=== PATIENT | male | born 1950 | race Caucasian/White ===

== ENCOUNTER 2017-10-09 13:23 | Observation (INO) | payer OTHER ==
[~2017-10-09] VITALS: Ht 180.3 cm; Wt 96.8 kg
--- NOTE | ~2017-10-09 | CN ---
PATIENT NAME:MELISSA GORDILLO SR MEDICAL RECORD: [id number] : 48 LOCATION:D. D.2111 ADMIT DATE: 10/09/17 ACCOUNT: [id number] CONSULTING PHYSICIAN: NITISH HILLS MD REFERRING PHYSICIAN: SINCERE CANALES MD DATE OF CONSULTATION: 11/03/2017 IDENTIFYING DATA: The patient is 67 years old and he was admitted to the hospital on a voluntary basis. CHIEF COMPLAINT: Agitation. HISTORY OF PRESENT ILLNESS: I am consulted to see the patient because he has been agitated and disruptive with the staff members. Apparently, he has been yelling out and abusive to the nurses. He says he is only doing this because they forced him to take medicine he did not want to take. When asked about this, he says that they put pills in his throat and then poured Coke down his throat and made him drink it. I do not see how someone could make him take a pill he did not want to, but that is what he says. His mother and father and 3 other relatives, one of whom is a nurse practitioner in the room. Between all of them talking often over each other, I was able to get a reasonable amount of history and the consensus among all of them is that his behavior problems developed after he was started on the Geodon. MENTAL STATUS EXAMINATION: The patient is awake, alert, and oriented to person, place, time, and situation. His mood is flat. His affect is constricted. Thought processes are circumstantial. Memory, concentration, and abstraction abilities are mildly impaired and he denies that he would seek to harm himself or others as well as overt psychotic symptoms. ASSESSMENT: Delirium secondary to multiple medical factors. PLAN: At this time at the family's request as well as the request of the patient, I am going to discontinue his psychoactive medications. I see no acute evidence of direct dangerousness nor does he have a psychiatric history. His long-term prognosis is guarded. Followup will be with his primary care physician. TRANSINT:[id number] Voice Confirmation ID: [id number] DOCUMENT ID: [id number] NITISH HILLS MD at 1434 CC: [id number] DICTATION DATE: 11/03/17 1443 HAND BLOCKER: 11/03/17 1453 DIS IN 11/09/17 [facility] [address] [place] [address]
[~2017-10-09 13:23] MED LIST: ACTOS30 MG PO; CATAPRES0.1 MG PO; GLUCOTROL 5 MG T5 MG PO; HYDROCODON-ACE1 EAC7 PO; ISOSORBIDE MONO30 M1 PO; LOPERAMIDE HCL2 MG PO; OXYBUTYNIN CHLOR5 MG PO; PRILOSEC20 MG PO; QUESTRAN LIG1 PACKET PO; TENORMIN100 MG PO; VASOTEC20 MG PO
[2017-10-09 14:27] LABS: BASOPHILS 0.6 % (0-2); EOSINOPHILS 3.5 % (0-7); HEMATOCRIT 32.9 % (42.0-54.0); HEMOGLOBIN 10.8 g/dL (13.5-17.5); IMMATURE GRANULOCYTES 0.2 % (0-5); LYMPHOCYTES 25.1 % (15-50); MCH 29.8 pg (26.0-34.0); MCHC 32.8 g/dL (31.0-37.0); MCV 90.6 fL (80.0-100.0); MEAN PLATELET VOLUME 10.2 fL (7.4-10.4); MONOCYTES 17.8 % (2-11); NEUTROPHILS 52.8 % (40-80); PLATELET COUNT 259 10x3/uL (130-400); RBC 3.63 10x6/uL (4.20-6.10); RDW 13.4 % (11.5-14.5); WBC 12.7 10x3/uL (4.8-10.8)
[2017-10-09 14:37] LABS: ALBUMIN 2.8 g/dL (3.4-5.0); ANION GAP 13.8 mmol/L (8-16); BILIRUBIN - TOTAL 0.63 mg/dL (0.2-1.3); CALCIUM 9.2 mg/dL (8.5-10.1); CARBON DIOXIDE 25.9 mmol/L (21.0-32.0); CREATININE - SERUM 1.3 mg/dL (0.6-1.3); POTASSIUM - SERUM 3.7 mmol/L (3.5-5.1); PROTEIN - SERUM 6.6 g/dL (6.4-8.2)
[2017-10-09 15:02] LABS: APPEARANCE CLEAR (CLEAR); BILIRUBIN NEGATIVE (NEGATIVE); COLOR STRAW (YELLOW); GLUCOSE NEGATIVE (NEGATIVE); KETONE SMALL mg/dL (NEGATIVE); NITRITE NEGATIVE (NEGATIVE); PH 7.5 (5.0-6.0); PROTEIN NEGATIVE (NEGATIVE); SPECIFIC GRAVITY 1.005 (1.005-1.020); UROBILINOGEN NORMAL (NORMAL)
[2017-10-09 16:37] LABS: CKMB 1.3 U/L (0.0-3.6); CREATINE KINASE 215 UL (21-232); TROPONIN-I 0.029 ng/mL (0.000-0.060)
[2017-10-09] MEDS ORDERED: CARAFATE1 G PO (20:02)
[2017-10-09] MEDS ORDERED: FUROSEMIDE20 MG PO (20:03)
[2017-10-09] MEDS ORDERED: NEURONTIN 300300 MG PO (20:03)
[2017-10-09] MEDS ORDERED: NORVASC5 MG PO (20:03)
[2017-10-09] MEDS ORDERED: KLOR-CON 1010 MEQ PO (20:04)
[2017-10-09] MEDS ORDERED: GLIMEPIRIDE2 MG PO (20:06)
[2017-10-09] MEDS ORDERED: FLOMAX0.4 MG PO (20:08)
[2017-10-09] MEDS ORDERED: PROSCAR5 MG PO (20:08)
[2017-10-09 20:47] VITALS: BMI 29.7
[2017-10-09 21:34] VITALS: BP 192/90
[2017-10-10 01:32] VITALS: BP 138/85
[2017-10-10 07:09] VITALS: BP 180/85
[2017-10-10 08:26] VITALS: BP 142/90
[2017-10-10 12:34] VITALS: BP 183/90
[2017-10-10 13:19] VITALS: BMI 29.7
[2017-10-10 14:18] LABS: % SATURATION 9 % (15-55); IRON 21 ug/dl (35-150); TOTAL IRON BIND CAPACITY 224 ug/dl (260-445); UNSAT IRON BIND CAPACITY 203 ug/dl (150-375)
[2017-10-10 15:45] VITALS: BP 162/83
[2017-10-10 21:09] VITALS: BP 140/73
[2017-10-11 00:49] VITALS: BP 158/82
[2017-10-11 05:12] VITALS: BP 148/64
[2017-10-11 06:35] LABS: BASOPHILS 0.3 % (0-2); EOSINOPHILS 13.8 % (0-7); HEMATOCRIT 30.2 % (42.0-54.0); HEMOGLOBIN 9.9 g/dL (13.5-17.5); IMMATURE GRANULOCYTES 0.3 % (0-5); LYMPHOCYTES 25.5 % (15-50); MCH 29.6 pg (26.0-34.0); MCHC 32.8 g/dL (31.0-37.0); MCV 90.1 fL (80.0-100.0); MEAN PLATELET VOLUME 10.4 fL (7.4-10.4); MONOCYTES 18.7 % (2-11); NEUTROPHILS 41.4 % (40-80); PLATELET COUNT 237 10x3/uL (130-400); RBC 3.35 10x6/uL (4.20-6.10); RDW 13.5 % (11.5-14.5); WBC 10.5 10x3/uL (4.8-10.8)
[2017-10-11 06:55] LABS: ANION GAP 10.3 mmol/L (8-16); CALCIUM 8.7 mg/dL (8.5-10.1); CARBON DIOXIDE 27.4 mmol/L (21.0-32.0); CREATININE - SERUM 1.5 mg/dL (0.6-1.3); POTASSIUM - SERUM 3.7 mmol/L (3.5-5.1)
[2017-10-11 08:14] VITALS: BP 149/68
[2017-10-11 08:19] LABS: FOLATE (FOLIC ACID) - SERUM 13.2 ng/mL (>3.0)
[2017-10-11 11:53] VITALS: BP 114/80
[2017-10-11 17:06] VITALS: BP 137/87
[2017-10-11 21:09] VITALS: BP 145/72
[2017-10-12 05:54] VITALS: BP 142/75
[2017-10-12 06:49] LABS: BASOPHILS 0.2 % (0-2); EOSINOPHILS 12.1 % (0-7); HEMOGLOBIN 9.9 g/dL (13.5-17.5); IMMATURE GRANULOCYTES 0.3 % (0-5); LYMPHOCYTES 21.5 % (15-50); MCH 29.1 pg (26.0-34.0); MCHC 31.9 g/dL (31.0-37.0); MCV 91.2 fL (80.0-100.0); MEAN PLATELET VOLUME 10.9 fL (7.4-10.4); MONOCYTES 16.9 % (2-11); PLATELET COUNT 247 10x3/uL (130-400); RDW 13.8 % (11.5-14.5); WBC 12.6 10x3/uL (4.8-10.8)
[2017-10-12 07:05] LABS: ANION GAP 12.3 mmol/L (8-16); CALCIUM 8.8 mg/dL (8.5-10.1); CARBON DIOXIDE 25.7 mmol/L (21.0-32.0); CREATININE - SERUM 1.5 mg/dL (0.6-1.3)
[2017-10-12 08:52] VITALS: BP 158/65
[2017-10-12 12:47] VITALS: BP 129/77
[2017-10-12 18:08] VITALS: BP 133/64
[2017-10-12 20:00] VITALS: BP 157/84
[2017-10-13 04:00] VITALS: BP 155/82
[2017-10-13 04:28] LABS: BASOPHILS 0.2 % (0-2); EOSINOPHILS 13.1 % (0-7); HEMATOCRIT 33.9 % (42.0-54.0); IMMATURE GRANULOCYTES 0.4 % (0-5); LYMPHOCYTES 29.5 % (15-50); MCH 29.6 pg (26.0-34.0); MCHC 32.4 g/dL (31.0-37.0); MCV 91.1 fL (80.0-100.0); MEAN PLATELET VOLUME 10.8 fL (7.4-10.4); MONOCYTES 15.7 % (2-11); NEUTROPHILS 41.1 % (40-80); PLATELET COUNT 263 10x3/uL (130-400); RBC 3.72 10x6/uL (4.20-6.10); RDW 13.7 % (11.5-14.5); WBC 10.6 10x3/uL (4.8-10.8)
[2017-10-13 04:43] LABS: ANION GAP 11.1 mmol/L (8-16); CARBON DIOXIDE 27.7 mmol/L (21.0-32.0); CREATININE - SERUM 1.5 mg/dL (0.6-1.3); POTASSIUM - SERUM 3.8 mmol/L (3.5-5.1)
[2017-10-13 08:39] VITALS: BP 172/86
[2017-10-13 11:57] VITALS: BP 156/82
[2017-10-13 15:54] VITALS: BP 138/68
[2017-10-13 20:00] VITALS: BP 127/63
[2017-10-14] VITALS: BP 130/60
[2017-10-14 04:00] VITALS: BP 134/80
[2017-10-14 05:38] LABS: BASOPHILS 0.3 % (0-2); EOSINOPHILS 10.2 % (0-7); HEMATOCRIT 29.9 % (42.0-54.0); HEMOGLOBIN 9.6 g/dL (13.5-17.5); IMMATURE GRANULOCYTES 0.2 % (0-5); LYMPHOCYTES 22.1 % (15-50); MCH 28.9 pg (26.0-34.0); MCHC 32.1 g/dL (31.0-37.0); MCV 90.1 fL (80.0-100.0); MEAN PLATELET VOLUME 10.9 fL (7.4-10.4); MONOCYTES 14.5 % (2-11); NEUTROPHILS 52.7 % (40-80); PLATELET COUNT 267 10x3/uL (130-400); RBC 3.32 10x6/uL (4.20-6.10); RDW 13.8 % (11.5-14.5)
[2017-10-14 05:51] LABS: ANION GAP 11.8 mmol/L (8-16); CALCIUM 8.8 mg/dL (8.5-10.1); CARBON DIOXIDE 25.4 mmol/L (21.0-32.0); CREATININE - SERUM 1.7 mg/dL (0.6-1.3); POTASSIUM - SERUM 4.2 mmol/L (3.5-5.1)
[2017-10-14 08:16] VITALS: BP 103/33
[2017-10-14 11:59] VITALS: BP 129/74
[2017-10-14 16:04] VITALS: BP 163/71
[2017-10-14 20:44] VITALS: BP 136/64
[2017-10-15 01:11] VITALS: BP 152/71
[2017-10-15 05:44] LABS: ANION GAP 10.4 mmol/L (8-16); CALCIUM 8.8 mg/dL (8.5-10.1); CARBON DIOXIDE 24.4 mmol/L (21.0-32.0); CREATININE - SERUM 1.6 mg/dL (0.6-1.3); POTASSIUM - SERUM 3.8 mmol/L (3.5-5.1)
[2017-10-15 05:46] VITALS: BP 155/77
[2017-10-15 05:47] LABS: BASOPHILS 0.3 % (0-2); EOSINOPHILS 9.6 % (0-7); HEMATOCRIT 32.5 % (42.0-54.0); HEMOGLOBIN 10.3 g/dL (13.5-17.5); IMMATURE GRANULOCYTES 0.3 % (0-5); MCH 28.9 pg (26.0-34.0); MCHC 31.7 g/dL (31.0-37.0); MEAN PLATELET VOLUME 11.4 fL (7.4-10.4); MONOCYTES 14.6 % (2-11); NEUTROPHILS 53.2 % (40-80); PLATELET COUNT 294 10x3/uL (130-400); RBC 3.57 10x6/uL (4.20-6.10)
[2017-10-15 08:26] VITALS: BP 166/80
[2017-10-15 11:51] VITALS: BP 132/85
[2017-10-15 16:33] VITALS: BP 114/62
[2017-10-15 20:46] VITALS: BP 113/54
[2017-10-16 01:06] VITALS: BP 128/62
[2017-10-16 05:26] LABS: BASOPHILS 0.4 % (0-2); EOSINOPHILS 9.3 % (0-7); HEMATOCRIT 32.4 % (42.0-54.0); HEMOGLOBIN 10.5 g/dL (13.5-17.5); IMMATURE GRANULOCYTES 0.2 % (0-5); LYMPHOCYTES 27.8 % (15-50); MCH 29.4 pg (26.0-34.0); MCHC 32.4 g/dL (31.0-37.0); MCV 90.8 fL (80.0-100.0); MEAN PLATELET VOLUME 11.2 fL (7.4-10.4); NEUTROPHILS 45.3 % (40-80); PLATELET COUNT 315 10x3/uL (130-400); RBC 3.57 10x6/uL (4.20-6.10); RDW 13.9 % (11.5-14.5); WBC 9.9 10x3/uL (4.8-10.8)
[2017-10-16 05:47] LABS: ANION GAP 10.7 mmol/L (8-16); CALCIUM 9.1 mg/dL (8.5-10.1); CARBON DIOXIDE 24.6 mmol/L (21.0-32.0); CREATININE - SERUM 1.7 mg/dL (0.6-1.3); POTASSIUM - SERUM 4.3 mmol/L (3.5-5.1)
[2017-10-16 06:10] VITALS: BP 139/75
[2017-10-16 09:25] VITALS: BP 159/81
[2017-10-16 12:37] VITALS: BP 146/74
[2017-10-16 17:32] VITALS: BP 102/52
[2017-10-16 20:00] VITALS: BP 117/60
[2017-10-17] VITALS: BP 112/56
[2017-10-17 04:00] VITALS: BP 118/54
[2017-10-17 06:00] LABS: BASOPHILS 0.6 % (0-2); EOSINOPHILS 8.6 % (0-7); HEMATOCRIT 32.9 % (42.0-54.0); HEMOGLOBIN 10.6 g/dL (13.5-17.5); IMMATURE GRANULOCYTES 0.3 % (0-5); LYMPHOCYTES 30.1 % (15-50); MCH 29.4 pg (26.0-34.0); MCHC 32.2 g/dL (31.0-37.0); MCV 91.1 fL (80.0-100.0); MEAN PLATELET VOLUME 10.9 fL (7.4-10.4); MONOCYTES 14.8 % (2-11); NEUTROPHILS 45.6 % (40-80); RBC 3.61 10x6/uL (4.20-6.10); RDW 14.1 % (11.5-14.5); WBC 10.8 10x3/uL (4.8-10.8)
[2017-10-17 06:01] LABS: PLATELET COUNT 384 10x3/uL (130-400)
[2017-10-17 06:03] LABS: ANION GAP 10.2 mmol/L (8-16); CALCIUM 9.4 mg/dL (8.5-10.1); CARBON DIOXIDE 27.7 mmol/L (21.0-32.0); CREATININE - SERUM 1.8 mg/dL (0.6-1.3); POTASSIUM - SERUM 3.9 mmol/L (3.5-5.1)
[2017-10-17 08:11] VITALS: BP 140/77
[2017-10-17 12:24] VITALS: BP 111/62
[2017-10-17 15:31] VITALS: BP 113/50
[2017-10-17 20:00] VITALS: BP 128/63
[2017-10-18 06:10] LABS: BASOPHILS 0.5 % (0-2); HEMATOCRIT 32.6 % (42.0-54.0); HEMOGLOBIN 10.3 g/dL (13.5-17.5); IMMATURE GRANULOCYTES 0.3 % (0-5); MCH 29.2 pg (26.0-34.0); MCHC 31.6 g/dL (31.0-37.0); MCV 92.4 fL (80.0-100.0); MEAN PLATELET VOLUME 11.3 fL (7.4-10.4); MONOCYTES 18.5 % (2-11); NEUTROPHILS 41.7 % (40-80); PLATELET COUNT 400 10x3/uL (130-400); RBC 3.53 10x6/uL (4.20-6.10); RDW 14.3 % (11.5-14.5); WBC 10.4 10x3/uL (4.8-10.8)
[2017-10-18 06:27] LABS: ANION GAP 11.4 mmol/L (8-16); CALCIUM 9.2 mg/dL (8.5-10.1); CARBON DIOXIDE 28.6 mmol/L (21.0-32.0); CREATININE - SERUM 1.8 mg/dL (0.6-1.3)
[2017-10-18 08:24] VITALS: BP 142/77
[2017-10-18 12:35] VITALS: BP 105/65
[2017-10-18 15:47] VITALS: BP 111/60
[2017-10-18 20:00] VITALS: BP 138/72
[2017-10-19 04:00] VITALS: BP 162/66
[2017-10-19 06:19] LABS: BASOPHILS 0.6 % (0-2); HEMATOCRIT 31.7 % (42.0-54.0); IMMATURE GRANULOCYTES 0.3 % (0-5); LYMPHOCYTES 27.7 % (15-50); MCH 28.8 pg (26.0-34.0); MCHC 31.5 g/dL (31.0-37.0); MCV 91.4 fL (80.0-100.0); MEAN PLATELET VOLUME 10.9 fL (7.4-10.4); MONOCYTES 18.6 % (2-11); NEUTROPHILS 43.8 % (40-80); PLATELET COUNT 431 10x3/uL (130-400); RBC 3.47 10x6/uL (4.20-6.10); RDW 14.2 % (11.5-14.5)
[2017-10-19 06:43] LABS: ANION GAP 11.2 mmol/L (8-16); CALCIUM 9.2 mg/dL (8.5-10.1); CREATININE - SERUM 1.7 mg/dL (0.6-1.3); POTASSIUM - SERUM 4.2 mmol/L (3.5-5.1)
[2017-10-19 08:40] VITALS: BP 139/78
[2017-10-19 12:48] VITALS: BP 124/75
[2017-10-19 16:15] VITALS: BP 109/56
[2017-10-19 17:12] LABS: AEROBE ID Final report (())
[2017-10-19 20:04] VITALS: BP 141/75
[2017-10-20 00:37] VITALS: BP 98/53
[2017-10-20 06:07] LABS: BASOPHILS 0.6 % (0-2); EOSINOPHILS 6.9 % (0-7); HEMATOCRIT 32.8 % (42.0-54.0); HEMOGLOBIN 10.5 g/dL (13.5-17.5); IMMATURE GRANULOCYTES 0.2 % (0-5); LYMPHOCYTES 27.4 % (15-50); MCH 29.3 pg (26.0-34.0); MCV 91.6 fL (80.0-100.0); MEAN PLATELET VOLUME 10.8 fL (7.4-10.4); MONOCYTES 18.2 % (2-11); NEUTROPHILS 46.7 % (40-80); PLATELET COUNT 477 10x3/uL (130-400); RBC 3.58 10x6/uL (4.20-6.10); RDW 14.2 % (11.5-14.5); WBC 9.9 10x3/uL (4.8-10.8)
[2017-10-20 06:21] VITALS: BP 124/64
[2017-10-20 06:33] LABS: ANION GAP 11.8 mmol/L (8-16); CALCIUM 9.1 mg/dL (8.5-10.1); CARBON DIOXIDE 27.4 mmol/L (21.0-32.0); CREATININE - SERUM 1.9 mg/dL (0.6-1.3); POTASSIUM - SERUM 4.2 mmol/L (3.5-5.1)
[2017-10-20 08:50] VITALS: BP 144/74
[2017-10-20 12:03] VITALS: BP 148/67
[2017-10-20 12:28] VITALS: Ht 180.3 cm; Wt 96.8 kg
[2017-10-20 15:28] VITALS: BP 125/62
[2017-10-20 20:38] VITALS: BP 138/65
[2017-10-21 00:05] VITALS: BP 90/63
[2017-10-21 04:39] VITALS: BP 134/69
[2017-10-21 08:02] VITALS: BP 133/70
[2017-10-21 11:11] VITALS: BP 98/57
[2017-10-21 11:26] LABS: BASOPHILS 0.3 % (0-2); EOSINOPHILS 7.5 % (0-7); HEMATOCRIT 33.3 % (42.0-54.0); HEMOGLOBIN 10.8 g/dL (13.5-17.5); IMMATURE GRANULOCYTES 0.2 % (0-5); LYMPHOCYTES 23.7 % (15-50); MCH 29.6 pg (26.0-34.0); MCHC 32.4 g/dL (31.0-37.0); MCV 91.2 fL (80.0-100.0); MEAN PLATELET VOLUME 11.3 fL (7.4-10.4); MONOCYTES 13.2 % (2-11); NEUTROPHILS 55.1 % (40-80); PLATELET COUNT 495 10x3/uL (130-400); RBC 3.65 10x6/uL (4.20-6.10); RDW 14.1 % (11.5-14.5); WBC 9.2 10x3/uL (4.8-10.8)
[2017-10-21 11:35] LABS: ANION GAP 12.9 mmol/L (8-16); CALCIUM 9.2 mg/dL (8.5-10.1); CARBON DIOXIDE 24.3 mmol/L (21.0-32.0); CREATININE - SERUM 1.8 mg/dL (0.6-1.3); POTASSIUM - SERUM 4.2 mmol/L (3.5-5.1)
[2017-10-21 15:19] VITALS: BP 120/60
[2017-10-21 20:33] VITALS: BP 119/56
[2017-10-22 01:35] VITALS: BP 96/45
[2017-10-22 05:28] LABS: BASOPHILS 0.4 % (0-2); EOSINOPHILS 6.1 % (0-7); HEMATOCRIT 30.2 % (42.0-54.0); HEMOGLOBIN 9.5 g/dL (13.5-17.5); IMMATURE GRANULOCYTES 0.3 % (0-5); LYMPHOCYTES 25.8 % (15-50); MCH 28.8 pg (26.0-34.0); MCHC 31.5 g/dL (31.0-37.0); MCV 91.5 fL (80.0-100.0); MONOCYTES 15.6 % (2-11); NEUTROPHILS 51.8 % (40-80); PLATELET COUNT 489 10x3/uL (130-400); RDW 14.3 % (11.5-14.5); WBC 9.7 10x3/uL (4.8-10.8)
[2017-10-22 05:50] VITALS: BP 100/60
[2017-10-22 05:51] LABS: ANION GAP 10.9 mmol/L (8-16); CALCIUM 8.8 mg/dL (8.5-10.1); CARBON DIOXIDE 24.3 mmol/L (21.0-32.0); CREATININE - SERUM 1.9 mg/dL (0.6-1.3); POTASSIUM - SERUM 4.2 mmol/L (3.5-5.1)
[2017-10-22 08:25] VITALS: BP 126/58
[2017-10-22 11:52] VITALS: BP 116/67
[2017-10-22 15:53] VITALS: BP 107/55
[2017-10-22 20:34] VITALS: BP 115/61
[2017-10-23 01:31] VITALS: BP 99/52
[2017-10-23 04:57] LABS: BASOPHILS 0.6 % (0-2); EOSINOPHILS 5.9 % (0-7); HEMOGLOBIN 10.1 g/dL (13.5-17.5); IMMATURE GRANULOCYTES 0.4 % (0-5); LYMPHOCYTES 27.7 % (15-50); MCH 29.2 pg (26.0-34.0); MCHC 31.6 g/dL (31.0-37.0); MCV 92.5 fL (80.0-100.0); MONOCYTES 17.6 % (2-11); NEUTROPHILS 47.8 % (40-80); PLATELET COUNT 535 10x3/uL (130-400); RBC 3.46 10x6/uL (4.20-6.10); RDW 14.5 % (11.5-14.5); WBC 9.5 10x3/uL (4.8-10.8)
[2017-10-23 05:26] LABS: ANION GAP 16.5 mmol/L (8-16); CALCIUM 9.2 mg/dL (8.5-10.1); CARBON DIOXIDE 22.8 mmol/L (21.0-32.0); CREATININE - SERUM 2.1 mg/dL (0.6-1.3); POTASSIUM - SERUM 4.3 mmol/L (3.5-5.1)
[2017-10-23 05:43] VITALS: BP 115/63
[2017-10-23 10:02] VITALS: BP 132/72
[2017-10-23 13:18] VITALS: BP 136/75
[2017-10-23 16:17] VITALS: BP 105/52
[2017-10-23 20:00] VITALS: BP 111/55
[2017-10-24 04:00] VITALS: BP 128/67
[2017-10-24 07:16] LABS: BASOPHILS 0.5 % (0-2); EOSINOPHILS 5.4 % (0-7); HEMATOCRIT 34.7 % (42.0-54.0); HEMOGLOBIN 10.7 g/dL (13.5-17.5); IMMATURE GRANULOCYTES 0.3 % (0-5); LYMPHOCYTES 25.7 % (15-50); MCH 28.9 pg (26.0-34.0); MCHC 30.8 g/dL (31.0-37.0); MCV 93.8 fL (80.0-100.0); MEAN PLATELET VOLUME 11.4 fL (7.4-10.4); MONOCYTES 15.2 % (2-11); NEUTROPHILS 52.9 % (40-80); PLATELET COUNT 496 10x3/uL (130-400); RDW 14.5 % (11.5-14.5); WBC 11.4 10x3/uL (4.8-10.8)
[2017-10-24 07:20] LABS: ANION GAP 12.9 mmol/L (8-16); CALCIUM 9.3 mg/dL (8.5-10.1); CARBON DIOXIDE 23.5 mmol/L (21.0-32.0); CREATININE - SERUM 1.9 mg/dL (0.6-1.3); POTASSIUM - SERUM 4.4 mmol/L (3.5-5.1)
[2017-10-24 08:53] VITALS: BP 134/71
[2017-10-24 11:45] VITALS: BP 124/64
[2017-10-24 20:00] VITALS: BP 142/74
[2017-10-25] VITALS: BP 138/72
[2017-10-25 04:00] VITALS: BP 146/80
[2017-10-25 05:29] LABS: BASOPHILS 0.2 % (0-2); EOSINOPHILS 4.6 % (0-7); HEMOGLOBIN 9.7 g/dL (13.5-17.5); IMMATURE GRANULOCYTES 0.3 % (0-5); MCH 28.9 pg (26.0-34.0); MCHC 31.3 g/dL (31.0-37.0); MCV 92.3 fL (80.0-100.0); MEAN PLATELET VOLUME 10.8 fL (7.4-10.4); NEUTROPHILS 61.9 % (40-80); PLATELET COUNT 532 10x3/uL (130-400); RBC 3.36 10x6/uL (4.20-6.10); RDW 14.5 % (11.5-14.5); WBC 13.7 10x3/uL (4.8-10.8)
[2017-10-25 05:43] LABS: ANION GAP 12.4 mmol/L (8-16); CALCIUM 8.7 mg/dL (8.5-10.1); CARBON DIOXIDE 23.8 mmol/L (21.0-32.0); CREATININE - SERUM 1.9 mg/dL (0.6-1.3); POTASSIUM - SERUM 4.2 mmol/L (3.5-5.1)
[2017-10-25 07:59] VITALS: BP 126/66
[2017-10-25 11:48] VITALS: BP 103/59
[2017-10-25 15:46] VITALS: BP 117/55
[2017-10-25 20:28] VITALS: BP 116/57
[2017-10-26 01:30] VITALS: BP 116/58
[2017-10-26 04:00] VITALS: BP 111/62
[2017-10-26 04:50] LABS: BASOPHILS 0.5 % (0-2); EOSINOPHILS 4.9 % (0-7); HEMATOCRIT 30.3 % (42.0-54.0); HEMOGLOBIN 9.5 g/dL (13.5-17.5); IMMATURE GRANULOCYTES 0.6 % (0-5); LYMPHOCYTES 26.7 % (15-50); MCHC 31.4 g/dL (31.0-37.0); MCV 92.4 fL (80.0-100.0); MEAN PLATELET VOLUME 10.5 fL (7.4-10.4); MONOCYTES 17.3 % (2-11); PLATELET COUNT 520 10x3/uL (130-400); RBC 3.28 10x6/uL (4.20-6.10); RDW 14.5 % (11.5-14.5); WBC 11.4 10x3/uL (4.8-10.8)
[2017-10-26 05:14] LABS: ANION GAP 11.5 mmol/L (8-16); CALCIUM 8.9 mg/dL (8.5-10.1); CARBON DIOXIDE 23.9 mmol/L (21.0-32.0); POTASSIUM - SERUM 4.4 mmol/L (3.5-5.1)
[2017-10-26 07:44] VITALS: BP 124/70
[2017-10-26 11:25] VITALS: BP 125/76
[2017-10-26 15:24] VITALS: BP 145/72
[2017-10-26 20:00] VITALS: BP 148/76
[2017-10-27 00:54] VITALS: BP 136/62
[2017-10-27 04:00] VITALS: BP 128/74
[2017-10-27 08:59] VITALS: BP 147/69
[2017-10-27 12:13] VITALS: BP 125/61
[2017-10-27 15:43] VITALS: BP 164/59
[2017-10-27 21:08] VITALS: BP 120/59
[2017-10-28 01:39] VITALS: BP 115/51
[2017-10-28 05:49] LABS: BASOPHILS 0.6 % (0-2); EOSINOPHILS 5.9 % (0-7); HEMATOCRIT 30.1 % (42.0-54.0); HEMOGLOBIN 9.4 g/dL (13.5-17.5); IMMATURE GRANULOCYTES 0.4 % (0-5); LYMPHOCYTES 33.1 % (15-50); MCH 28.7 pg (26.0-34.0); MCHC 31.2 g/dL (31.0-37.0); MEAN PLATELET VOLUME 10.6 fL (7.4-10.4); MONOCYTES 14.9 % (2-11); NEUTROPHILS 45.1 % (40-80); PLATELET COUNT 505 10x3/uL (130-400); RBC 3.27 10x6/uL (4.20-6.10); RDW 14.4 % (11.5-14.5); WBC 10.7 10x3/uL (4.8-10.8)
[2017-10-28 06:09] LABS: ANION GAP 11.7 mmol/L (8-16); CALCIUM 9.1 mg/dL (8.5-10.1); CARBON DIOXIDE 24.6 mmol/L (21.0-32.0); CREATININE - SERUM 1.8 mg/dL (0.6-1.3); POTASSIUM - SERUM 4.3 mmol/L (3.5-5.1)
[2017-10-28 06:14] VITALS: BP 127/67
[2017-10-28 08:51] VITALS: BP 147/71
[2017-10-28 12:04] VITALS: BP 133/68
[2017-10-28 16:22] VITALS: BP 150/72
[2017-10-28 22:02] VITALS: BP 168/75
[2017-10-29 01:02] VITALS: BP 140/75
[2017-10-29 05:39] VITALS: BP 154/78
[2017-10-29 05:56] LABS: BASOPHILS 0.6 % (0-2); EOSINOPHILS 6.4 % (0-7); HEMATOCRIT 34.1 % (42.0-54.0); HEMOGLOBIN 10.8 g/dL (13.5-17.5); IMMATURE GRANULOCYTES 0.3 % (0-5); LYMPHOCYTES 28.6 % (15-50); MCH 29.1 pg (26.0-34.0); MCHC 31.7 g/dL (31.0-37.0); MCV 91.9 fL (80.0-100.0); MEAN PLATELET VOLUME 10.1 fL (7.4-10.4); MONOCYTES 15.9 % (2-11); NEUTROPHILS 48.2 % (40-80); PLATELET COUNT 474 10x3/uL (130-400); RBC 3.71 10x6/uL (4.20-6.10); RDW 14.5 % (11.5-14.5); WBC 10.9 10x3/uL (4.8-10.8)
[2017-10-29 06:16] LABS: ANION GAP 12.2 mmol/L (8-16); CALCIUM 9.3 mg/dL (8.5-10.1); CREATININE - SERUM 1.6 mg/dL (0.6-1.3); POTASSIUM - SERUM 4.2 mmol/L (3.5-5.1)
[2017-10-29 08:13] VITALS: BP 175/88
[2017-10-29 12:46] VITALS: BP 163/84
[2017-10-29 16:12] VITALS: BP 131/69
[2017-10-29 21:25] VITALS: BP 140/71
[2017-10-30 01:43] VITALS: BP 157/81
[2017-10-30 05:38] VITALS: BP 139/75
[2017-10-30 08:45] VITALS: BP 147/87
[2017-10-30 10:11] LABS: BASOPHILS 0.2 % (0-2); EOSINOPHILS 3.6 % (0-7); HEMOGLOBIN 10.7 g/dL (13.5-17.5); IMMATURE GRANULOCYTES 0.2 % (0-5); LYMPHOCYTES 16.9 % (15-50); MCH 29.3 pg (26.0-34.0); MCHC 32.4 g/dL (31.0-37.0); MCV 90.4 fL (80.0-100.0); MONOCYTES 15.3 % (2-11); NEUTROPHILS 63.8 % (40-80); PLATELET COUNT 525 10x3/uL (130-400); RBC 3.65 10x6/uL (4.20-6.10); RDW 14.2 % (11.5-14.5); WBC 12.5 10x3/uL (4.8-10.8)
[2017-10-30 10:14] LABS: ANION GAP 11.2 mmol/L (8-16); CALCIUM 9.4 mg/dL (8.5-10.1); CARBON DIOXIDE 29.7 mmol/L (21.0-32.0); CREATININE - SERUM 1.5 mg/dL (0.6-1.3); POTASSIUM - SERUM 3.9 mmol/L (3.5-5.1)
[2017-10-30 16:00] VITALS: BP 176/79
[2017-10-30 20:30] VITALS: BP 164/81
[2017-10-31 06:12] LABS: BASOPHILS 0.3 % (0-2); EOSINOPHILS 3.4 % (0-7); HEMATOCRIT 33.8 % (42.0-54.0); HEMOGLOBIN 10.9 g/dL (13.5-17.5); IMMATURE GRANULOCYTES 0.1 % (0-5); LYMPHOCYTES 19.4 % (15-50); MCH 28.9 pg (26.0-34.0); MCHC 32.2 g/dL (31.0-37.0); MCV 89.7 fL (80.0-100.0); MEAN PLATELET VOLUME 10.3 fL (7.4-10.4); MONOCYTES 16.7 % (2-11); NEUTROPHILS 60.1 % (40-80); PLATELET COUNT 514 10x3/uL (130-400); RBC 3.77 10x6/uL (4.20-6.10); WBC 13.6 10x3/uL (4.8-10.8)
[2017-10-31 06:57] LABS: CALCIUM 9.4 mg/dL (8.5-10.1); CARBON DIOXIDE 28.7 mmol/L (21.0-32.0); CREATININE - SERUM 1.5 mg/dL (0.6-1.3); POTASSIUM - SERUM 3.7 mmol/L (3.5-5.1)
[2017-10-31 07:59] VITALS: BP 162/87
[2017-10-31 11:17] VITALS: BP 151/72
[2017-10-31 15:32] VITALS: BP 132/60
[2017-10-31 20:00] VITALS: BP 128/68
[2017-11-01 04:00] VITALS: BP 180/69
[2017-11-01 04:24] LABS: BASOPHILS 0.2 % (0-2); EOSINOPHILS 3.3 % (0-7); HEMATOCRIT 33.8 % (42.0-54.0); HEMOGLOBIN 10.8 g/dL (13.5-17.5); IMMATURE GRANULOCYTES 0.4 % (0-5); LYMPHOCYTES 13.9 % (15-50); MCV 90.9 fL (80.0-100.0); MEAN PLATELET VOLUME 10.4 fL (7.4-10.4); MONOCYTES 16.9 % (2-11); NEUTROPHILS 65.3 % (40-80); PLATELET COUNT 468 10x3/uL (130-400); RBC 3.72 10x6/uL (4.20-6.10); RDW 14.4 % (11.5-14.5); WBC 16.4 10x3/uL (4.8-10.8)
[2017-11-01 04:43] LABS: ANION GAP 14.2 mmol/L (8-16); CALCIUM 9.2 mg/dL (8.5-10.1); CARBON DIOXIDE 26.7 mmol/L (21.0-32.0); CREATININE - SERUM 1.7 mg/dL (0.6-1.3); POTASSIUM - SERUM 3.9 mmol/L (3.5-5.1)
[2017-11-01 08:08] VITALS: BP 157/86
[2017-11-01 11:31] VITALS: BP 176/78
[2017-11-01 15:18] VITALS: BP 178/79
[2017-11-01 21:05] VITALS: BP 175/80
[2017-11-02 07:51] VITALS: BP 202/92
[2017-11-02 11:23] LABS: CALCIUM 9.5 mg/dL (8.5-10.1); CARBON DIOXIDE 27.9 mmol/L (21.0-32.0); CREATININE - SERUM 1.3 mg/dL (0.6-1.3); POTASSIUM - SERUM 3.9 mmol/L (3.5-5.1)
[2017-11-02 11:26] VITALS: BP 159/84
[2017-11-02 20:10] VITALS: BP 185/75
[2017-11-02 23:38] VITALS: BP 167/79
[2017-11-03 04:56] VITALS: BP 197/91
[2017-11-03 08:40] VITALS: BP 180/87
[2017-11-03 12:11] VITALS: BP 175/93
[2017-11-03 12:35] LABS: BASOPHILS 0.3 % (0-2); EOSINOPHILS 5.3 % (0-7); HEMOGLOBIN 11.5 g/dL (13.5-17.5); IMMATURE GRANULOCYTES 0.3 % (0-5); LYMPHOCYTES 16.9 % (15-50); MCH 29.5 pg (26.0-34.0); MCHC 32.9 g/dL (31.0-37.0); MCV 89.7 fL (80.0-100.0); MEAN PLATELET VOLUME 10.2 fL (7.4-10.4); MONOCYTES 14.2 % (2-11); PLATELET COUNT 421 10x3/uL (130-400); WBC 11.7 10x3/uL (4.8-10.8)
[2017-11-03 12:51] LABS: ANION GAP 13.2 mmol/L (8-16); BILIRUBIN - TOTAL 0.3 mg/dL (0.2-1.3); CALCIUM 9.9 mg/dL (8.5-10.1); CARBON DIOXIDE 26.8 mmol/L (21.0-32.0); CREATININE - SERUM 1.4 mg/dL (0.6-1.3); PROTEIN - SERUM 7.3 g/dL (6.4-8.2)
[2017-11-03 17:27] VITALS: BP 139/93
[2017-11-03 20:38] VITALS: BP 112/59
[2017-11-04 00:36] VITALS: BP 145/79
[2017-11-04 05:01] LABS: BASOPHILS 0.2 % (0-2); EOSINOPHILS 6.1 % (0-7); HEMATOCRIT 33.2 % (42.0-54.0); HEMOGLOBIN 10.7 g/dL (13.5-17.5); IMMATURE GRANULOCYTES 0.2 % (0-5); LYMPHOCYTES 31.8 % (15-50); MCH 28.8 pg (26.0-34.0); MCHC 32.2 g/dL (31.0-37.0); MCV 89.5 fL (80.0-100.0); MEAN PLATELET VOLUME 10.4 fL (7.4-10.4); MONOCYTES 17.9 % (2-11); NEUTROPHILS 43.8 % (40-80); PLATELET COUNT 401 10x3/uL (130-400); RBC 3.71 10x6/uL (4.20-6.10); RDW 14.1 % (11.5-14.5); WBC 9.5 10x3/uL (4.8-10.8)
[2017-11-04 05:21] LABS: ANION GAP 11.9 mmol/L (8-16); CALCIUM 9.7 mg/dL (8.5-10.1); CARBON DIOXIDE 25.9 mmol/L (21.0-32.0); CREATININE - SERUM 1.6 mg/dL (0.6-1.3); POTASSIUM - SERUM 3.8 mmol/L (3.5-5.1)
[2017-11-04 05:31] VITALS: BP 157/77
[2017-11-04 07:00] VITALS: BP 169/69
[2017-11-04 12:31] VITALS: BP 113/73
[2017-11-04 20:07] VITALS: BP 138/75
[2017-11-05 05:19] VITALS: BP 149/80
[2017-11-05 05:56] LABS: BASOPHILS 0.5 % (0-2); EOSINOPHILS 6.4 % (0-7); HEMATOCRIT 33.9 % (42.0-54.0); HEMOGLOBIN 11.1 g/dL (13.5-17.5); IMMATURE GRANULOCYTES 0.3 % (0-5); LYMPHOCYTES 38.1 % (15-50); MCH 29.4 pg (26.0-34.0); MCHC 32.7 g/dL (31.0-37.0); MCV 89.7 fL (80.0-100.0); MEAN PLATELET VOLUME 11.1 fL (7.4-10.4); MONOCYTES 16.3 % (2-11); NEUTROPHILS 38.4 % (40-80); PLATELET COUNT 366 10x3/uL (130-400); RBC 3.78 10x6/uL (4.20-6.10); RDW 13.9 % (11.5-14.5); WBC 10.2 10x3/uL (4.8-10.8)
[2017-11-05 06:08] LABS: CALCIUM 9.4 mg/dL (8.5-10.1); CARBON DIOXIDE 23.9 mmol/L (21.0-32.0); POTASSIUM - SERUM 3.9 mmol/L (3.5-5.1)
[2017-11-05 12:01] VITALS: BP 181/91
[2017-11-05 20:00] VITALS: BP 195/90
[2017-11-06] VITALS: BP 160/65
[2017-11-06 06:04] LABS: BASOPHILS 0.4 % (0-2); EOSINOPHILS 10.2 % (0-7); HEMATOCRIT 35.4 % (42.0-54.0); HEMOGLOBIN 11.4 g/dL (13.5-17.5); IMMATURE GRANULOCYTES 0.1 % (0-5); MCH 29.2 pg (26.0-34.0); MCHC 32.2 g/dL (31.0-37.0); MCV 90.5 fL (80.0-100.0); MEAN PLATELET VOLUME 10.6 fL (7.4-10.4); MONOCYTES 19.3 % (2-11); PLATELET COUNT 352 10x3/uL (130-400); RBC 3.91 10x6/uL (4.20-6.10); WBC 10.1 10x3/uL (4.8-10.8)
[2017-11-06 06:30] LABS: ANION GAP 11.4 mmol/L (8-16); CALCIUM 9.8 mg/dL (8.5-10.1); CARBON DIOXIDE 26.3 mmol/L (21.0-32.0); CREATININE - SERUM 1.8 mg/dL (0.6-1.3); POTASSIUM - SERUM 3.7 mmol/L (3.5-5.1)
[2017-11-06 11:50] VITALS: BP 152/67
[2017-11-06 15:56] VITALS: BP 140/77
[2017-11-06 20:30] VITALS: BP 124/62
[2017-11-07 06:47] LABS: BASOPHILS 0.2 % (0-2); EOSINOPHILS 8.8 % (0-7); HEMATOCRIT 32.2 % (42.0-54.0); HEMOGLOBIN 10.3 g/dL (13.5-17.5); IMMATURE GRANULOCYTES 0.2 % (0-5); MCH 28.8 pg (26.0-34.0); MCV 89.9 fL (80.0-100.0); MEAN PLATELET VOLUME 10.6 fL (7.4-10.4); MONOCYTES 14.4 % (2-11); NEUTROPHILS 41.4 % (40-80); PLATELET COUNT 322 10x3/uL (130-400); RBC 3.58 10x6/uL (4.20-6.10); RDW 13.9 % (11.5-14.5); WBC 9.7 10x3/uL (4.8-10.8)
[2017-11-07 06:51] LABS: ANION GAP 12.1 mmol/L (8-16); CALCIUM 9.2 mg/dL (8.5-10.1); CARBON DIOXIDE 26.7 mmol/L (21.0-32.0); CREATININE - SERUM 1.7 mg/dL (0.6-1.3); POTASSIUM - SERUM 3.8 mmol/L (3.5-5.1)
[2017-11-07 09:03] VITALS: BP 177/96
[2017-11-07 12:39] VITALS: BP 143/81
[2017-11-07 16:14] VITALS: BP 155/83
[2017-11-07 20:00] VITALS: BP 156/86
[2017-11-08 05:32] LABS: BASOPHILS 0.5 % (0-2); EOSINOPHILS 9.6 % (0-7); HEMATOCRIT 34.3 % (42.0-54.0); IMMATURE GRANULOCYTES 0.2 % (0-5); LYMPHOCYTES 31.3 % (15-50); MCHC 32.1 g/dL (31.0-37.0); MCV 90.5 fL (80.0-100.0); MEAN PLATELET VOLUME 10.9 fL (7.4-10.4); MONOCYTES 16.1 % (2-11); NEUTROPHILS 42.3 % (40-80); PLATELET COUNT 340 10x3/uL (130-400); RBC 3.79 10x6/uL (4.20-6.10); RDW 14.1 % (11.5-14.5); WBC 9.9 10x3/uL (4.8-10.8)
[2017-11-08 05:52] LABS: ANION GAP 9.5 mmol/L (8-16); CALCIUM 9.3 mg/dL (8.5-10.1); CREATININE - SERUM 1.6 mg/dL (0.6-1.3); POTASSIUM - SERUM 3.5 mmol/L (3.5-5.1)
[2017-11-08 06:17] VITALS: BP 89/62
[2017-11-08 07:00] VITALS: BP 169/72
[2017-11-08 11:00] VITALS: BP 112/79
[2017-11-08 16:00] VITALS: BP 185/84
[2017-11-08 21:53] VITALS: BP 189/82
[2017-11-09 00:49] VITALS: BP 125/84
[2017-11-09 05:17] VITALS: BP 186/69
[2017-11-09 09:11] VITALS: BP 184/58
== END 2017-11-09 11:18 | disposition home health service (06) ==
LOC: D.ER 13:23 → D.M2 18:10 → D.EDHOLD 18:10 → OBSVTIME 18:10 → D.M2 18:56
PROVIDERS: Emergency Medicine; Family Medicine; Internal Medicine Nephrology
DX: M54.5 Low back pain (principal); M47.816 Spondylosis without myelopathy or radiculopathy, lumbar region; W19.XXXA Unspecified fall, initial encounter; Z91.81 History of falling; R53.1 Weakness; I10 Essential (primary) hypertension; E78.5 Hyperlipidemia, unspecified; E11.9 Type 2 diabetes mellitus without complications; I69.354 Hemiplegia and hemiparesis following cerebral infarction affecting left non-dominant side; I48.2 Chronic atrial fibrillation; I25.10 Atherosclerotic heart disease of native coronary artery without angina pectoris; Z95.5 Presence of coronary angioplasty implant and graft; D64.9 Anemia, unspecified; M13.862 Other specified arthritis, left knee; G93.41 Metabolic encephalopathy; F05 Delirium due to known physiological condition

== ENCOUNTER 2019-11-16 11:22 | Inpatient (IN) | payer MEDICARE, OTHER ==
[~2019-11-16] VITALS: Ht 180.3 cm; Wt 74.6 kg
[~2019-11-16 11:22] MED LIST changes: +CARAFATE1 G PO; +FLOMAX0.4 MG PO; +FUROSEMIDE20 MG PO; +GLIMEPIRIDE2 MG PO; +KLOR-CON 1010 MEQ PO; +NEURONTIN 300300 MG PO; +NORVASC5 MG PO; +PROSCAR5 MG PO
[2019-11-16 13:00] VITALS: BP 171/82
[2019-11-16 13:00] LABS: HEMATOCRIT 40.1 % (42.0-54.0); HEMOGLOBIN 12.9 g/dL (13.5-17.5); LYMPHOCYTES 28.2 % (15-50); MCH 30.6 pg (26.0-34.0); MCHC 32.2 g/dL (31.0-37.0); MEAN PLATELET VOLUME 9.5 fL (7.4-10.4); NEUTROPHILS 59.8 % (40-80); PLATELET COUNT 388 10x3/uL (130-400); RBC 4.22 10x6/uL (4.20-6.10); RDW 14.3 % (11.5-14.5); WBC 8.9 10x3/uL (4.8-10.8)
[2019-11-16 13:07] LABS: APTT 33.1 SECONDS (22.8-39.4); INR 1.02 (0.85-1.17); PROTIME 13.3 SECONDS (11.6-15.0)
[2019-11-16 13:15] LABS: CALC OSMOLALITY 279 mosm/kg (275-300); CALCIUM 8.8 mg/dL (8.5-10.1); CARBON DIOXIDE 25.9 mmol/L (21.0-32.0); CHLORIDE - SERUM 106 mmol/L (98-107); CREATININE - SERUM 1.9 mg/dL (0.6-1.3); GLUCOSE 99 mg/dL (74-106); POTASSIUM - SERUM 3.5 mmol/L (3.5-5.1); SODIUM 139 mmol/L (136-145); UREA NITROGEN 18 mg/dL (7-18); eGFR NON AFRICAN AMERICAN 37 mL/min (90-120)
[2019-11-16 13:36] LABS: ALBUMIN 3.2 g/dL (3.4-5.0); ALKALINE PHOSPHATASE 123 U/L (30-120); ALT (SGPT) 14 U/L (10-68); BILIRUBIN - TOTAL 0.47 mg/dL (0.2-1.3); CKMB 1.2 U/L (0.0-3.6); CREATINE KINASE 31 UL (21-232); PROTEIN - SERUM 6.5 g/dL (6.4-8.2)
[2019-11-16 13:39] LABS: TROPONIN-I 0.113 ng/mL (0.000-0.060)
[2019-11-16 14:00] VITALS: BP 186/88
[2019-11-16 15:00] VITALS: BP 176/96
[2019-11-16 16:00] VITALS: BP 190/92
[2019-11-16 16:28] LABS: BILIRUBIN NEGATIVE (NEGATIVE); GLUCOSE NEGATIVE (NEGATIVE); KETONE NEGATIVE (NEGATIVE); NITRITE NEGATIVE (NEGATIVE); UROBILINOGEN NORMAL (NORMAL)
[2019-11-16 16:37] LABS: BACTERIA MANY /hpf (NEGATIVE); EPITHELIAL CELLS NSEEN /hpf (0-5); RED CELLS - URINE 0-5 /hpf (0-5); WHITE CELLS - URINE 25-50 /hpf (NEGATIVE)
--- NOTE | 2019-11-16 17:54 | NUR ---
PT TO FLOOR FROM ER VIA CART. ASSIST TO TRANSFER. PT IS FLACCID TO LEFT EXTREMITIES, BRACE TO LE. TRYING TO CALL FAMILY ON CELL PHONE. USING URINAL FOR VOIDING.
--- NOTE | 2019-11-16 19:24 | NUR ---
SCREAMING OUT HELP WHEN GETTING REPORT. ASKED ZANDRAT WAS WRONG AND HE STATED " I DROPPED MY PHONE ON THE FLOOR AND I CAN'T GE IT". EXPLAINED SOON I FINISHED REPORT AND DRESSED UP I WOULD GET IT FOR HIM. PT CONTINUED TO SCREAN OUT. HE IS VERY DEMANDING. ASKED FOR SOMETHING TO EAT. SAID HE HAS BEEN HERE ALL DQAY AND HAS NOT EATEN ANYTHING. GAVE HIM A SANDWICH TRAY. EVERYTIME THIS NURSE WALKED OUT OF THE ROOM HE WOULD PUT HIS CALL LIGHT ON AND START SCREAMING. HE IS ALERT AND ORIENTED. 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 LT ARM CONTRACTED AND BRACE TO LT LEG. USES A URINAL WHEN IN BED. IV TO RT AC WITH NS AT 75CC/HR.
[2019-11-16 20:46] LABS: CKMB 1.6 U/L (0.0-3.6); CREATINE KINASE 52 UL (21-232)
[2019-11-16 20:48] LABS: TROPONIN-I 0.112 ng/mL (0.000-0.060)
[2019-11-16 23:49] VITALS: BP 141/76; BMI 25.0
--- NOTE | 2019-11-17 00:03 | NUR ---
PT DOES NOT KNOW HIS MEDICATIONS. SAYS HIS GIVES THEM TO HIM. HOWEVER SPOUSE IS IN A LONGTERM AT THIS TIME AND UNABLE TO SPEAK.
[2019-11-17 04:00] VITALS: BP 150/78
[2019-11-17 06:26] LABS: BASOPHILS 0.2 % (0-2); EOSINOPHILS 2.7 % (0-7); HEMOGLOBIN 12.2 g/dL (13.5-17.5); IMMATURE GRANULOCYTES 0.1 % (0-5); LYMPHOCYTES 25.9 % (15-50); MCH 30.7 pg (26.0-34.0); MCHC 32.1 g/dL (31.0-37.0); MCV 95.5 fL (80.0-100.0); MEAN PLATELET VOLUME 10.1 fL (7.4-10.4); MONOCYTES 13.2 % (2-11); NEUTROPHILS 57.9 % (40-80); PLATELET COUNT 398 10x3/uL (130-400); RBC 3.98 10x6/uL (4.20-6.10); WBC 8.5 10x3/uL (4.8-10.8)
[2019-11-17 06:51] LABS: ALBUMIN 2.7 g/dL (3.4-5.0); ALKALINE PHOSPHATASE 103 U/L (30-120); ALT (SGPT) 11 U/L (10-68); BILIRUBIN - TOTAL 0.49 mg/dL (0.2-1.3); CALC OSMOLALITY 281 mosm/kg (275-300); CALCIUM 8.6 mg/dL (8.5-10.1); CARBON DIOXIDE 24.7 mmol/L (21.0-32.0); CHLORIDE - SERUM 110 mmol/L (98-107); CREATINE KINASE 42 UL (21-232); CREATININE - SERUM 1.7 mg/dL (0.6-1.3); GLUCOSE 83 mg/dL (74-106); POTASSIUM - SERUM 3.9 mmol/L (3.5-5.1); SODIUM 141 mmol/L (136-145); UREA NITROGEN 18 mg/dL (7-18); eGFR NON AFRICAN AMERICAN 43 mL/min (90-120)
[2019-11-17 06:57] LABS: TROPONIN-I 0.069 ng/mL (0.000-0.060)
[2019-11-17 10:30] VITALS: BP 121/66
[2019-11-17 13:16] VITALS: Ht 180.3 cm; Wt 74.6 kg
[2019-11-17 14:33] LABS: CKMB 1.7 U/L (0.0-3.6); CREATINE KINASE 51 UL (21-232); TROPONIN-I 0.048 ng/mL (0.000-0.060)
--- NOTE | 2019-11-17 19:30 | NUR ---
PT IN BED, AAO X 2, RESP EVEN AND UNLABORED. NO DISTRESS NOTED, CL IN REACH, SR UP X 2. NO CONCERNS OR WANTS NOTED AT THIS TIME.
[2019-11-17 20:10] VITALS: BP 142/73
[2019-11-18 00:48] VITALS: BP 132/66
[2019-11-18 02:13] VITALS: BP 144/76
--- NOTE | 2019-11-18 04:11 | NUR ---
I have reviewed this patient and I concur with the Shift Assessment completed by the Licensed Practical Nurse today this shift.
[2019-11-18 04:14] VITALS: BP 141/90
--- NOTE | 2019-11-18 04:26 | NUR ---
I have reviewed this patient and I concur with the Shift Assessment completed by the Licensed Practical Nurse today this shift.
--- NOTE | 2019-11-18 07:20 | NUR ---
RECIEVE REPORT. ALERT AND ORIENTED X4. ASSIST OFF BEDPAN. SINUS ELIDA 39 ON TELEMETRY. DENIES ANY OTHER NEEDS. CONTINUE PLAN OF CARE AND SAFETY PRECAUTIONS.
[2019-11-18 09:33] VITALS: BP 158/90
[2019-11-18 15:00] VITALS: BP 195/94
[2019-11-18 16:00] LABS: BASOPHILS 0.2 % (0-2); EOSINOPHILS 2.7 % (0-7); HEMATOCRIT 39.6 % (42.0-54.0); HEMOGLOBIN 12.9 g/dL (13.5-17.5); IMMATURE GRANULOCYTES 0.2 % (0-5); LYMPHOCYTES 14.8 % (15-50); MCH 30.9 pg (26.0-34.0); MCHC 32.6 g/dL (31.0-37.0); MEAN PLATELET VOLUME 10.3 fL (7.4-10.4); MONOCYTES 8.2 % (2-11); NEUTROPHILS 73.9 % (40-80); PLATELET COUNT 426 10x3/uL (130-400); RBC 4.17 10x6/uL (4.20-6.10); RDW 13.9 % (11.5-14.5)
[2019-11-18 16:04] LABS: WBC 12.4 10x3/uL (4.8-10.8)
[2019-11-18 16:29] LABS: ANION GAP 9.4 mmol/L (8-16); CALCIUM 8.7 mg/dL (8.5-10.1); CREATININE - SERUM 1.8 mg/dL (0.6-1.3); POTASSIUM - SERUM 3.4 mmol/L (3.5-5.1)
--- NOTE | 2019-11-18 17:06 | NUR ---
CONFUSED. ORIENTED TO PERSON. FREQUENTLY CALLING TOBACCO BALER ASKING ABOUT DISCHARGE AND SPOUSE. EXPLAIN DOCTOR IS WAITING FOR TEST RESULTS FOR COVID BEFORE DISCHARGE. WHEN IN ROOM ALONE, PATIENT YELLS OUT NURSE EVERY COUPLE OF MINUTES EVEN AFTER ENCOURAGING TO USE CALL LIGHT BUTTON TO ELIMINATE DISTURBING OTHER PATIENTS.
--- NOTE | 2019-11-18 19:45 | NUR ---
have roubnded on pt useing ppe PT IS VERY CONFUSED CONVERSATION DOES NOT HOLD EVERY OTHER QUESTION PT SAYS GO GET MY WC SO I CAN GO HOME EVEN AFTER I EXPLAIN THAT HE CAN NOT GO HOME BED IS LOW AND LOCKED CALL ARVIND IN REACH AND SRX3 I ASSISTED PT WITH ANSWERING HIS PHONE NOTED PT IS A TURN Q2 HOUR PT WAS SELF TURNING AND TURNED BACK TO HIS BACK BEFORE I LEFT THE ROOM
--- NOTE | 2019-11-18 21:03 | NUR ---
NOTED IV IS TURNED OFF IV SITE LOOKS RED WITH BLOOD UNDER BANDAGE PT WILL NOT COOPERATE TO ALLOW ME TO FLUSH AND CHECK LINE I BELEIVE IT MAY BE INFILTRATED. ATTEMPTED GLUCOSE CHECK AND PT SWUNG AT ME WITH RT HAND SAID YOU DIRTY BASTARD ILL HAVE NON OF THAT ATTEMPTED AGAIN TO EXPLAIN WHAT I WAS DOING TO NO AVAIL PT STATED NO ILL HIT YOU PT IS VERY CONFUSED TALKING TO PEOPLE THAT ARE NOT IN THE ROOM. I WILL ATTEMPT LATER TO CHECK IV PT ALSO WANTED RAISED IN BED THEN SAID NO I WANT FLAT THEN SAID NO I WANT TO HAVE HEAD UP I STARTED TO RAISE HEAD AGAIN AND HE CURSED ME AND SAID NO NO NO I SAID DOWN I LEFT THE ROOM WITH PT FLAT HOB 10 DEGREES AND BED LOW AND LOCKED PT WAS YELLING AT ME THE WHOLE TIME PT DID HOWEVER TAKE PO MEDS
[2019-11-18 21:20] VITALS: BP 187/90
--- NOTE | 2019-11-18 22:55 | NUR ---
OBSERVED FROM DOORWAY PT STILL SEEMINGLY HAVING COVERSATIONS WITH PEOPLE THAT ARE NOT THERE
[2019-11-19] VITALS: BP 191/84
--- NOTE | 2019-11-19 01:29 | NUR ---
OBSERVING PT OFTEN FROM DOORWAY HAS BEEN QUIET FOR TEN MINUTES APPEARS TO BE ASLEEP
[2019-11-19 04:00] VITALS: BP 203/98
[2019-11-19 06:16] LABS: BASOPHILS 0.1 % (0-2); EOSINOPHILS 0.1 % (0-7); IMMATURE GRANULOCYTES 0.3 % (0-5); LYMPHOCYTES 5.8 % (15-50); MCH 30.7 pg (26.0-34.0); MCHC 32.6 g/dL (31.0-37.0); MCV 94.3 fL (80.0-100.0); MEAN PLATELET VOLUME 10.7 fL (7.4-10.4); NEUTROPHILS 88.7 % (40-80); PLATELET COUNT 456 10x3/uL (130-400); RBC 4.56 10x6/uL (4.20-6.10); RDW 13.9 % (11.5-14.5)
[2019-11-19 06:22] LABS: WBC 16.1 10x3/uL (4.8-10.8)
[2019-11-19 06:32] LABS: CALCIUM 9.4 mg/dL (8.5-10.1); CARBON DIOXIDE 21.6 mmol/L (21.0-32.0); CREATININE - SERUM 1.6 mg/dL (0.6-1.3); POTASSIUM - SERUM 3.6 mmol/L (3.5-5.1)
[2019-11-19 08:52] VITALS: BP 162/78
--- NOTE | 2019-11-19 10:45 | NUR ---
HIRO FROM [facility] CAME AND PICKED UP PTs PERSONAL BRACE FOR REPAIRS.
--- NOTE | 2019-11-19 10:52 | NUR ---
UPON WALKING IN, PT WAS RESTING, RR EVEN AND UNLABORED, EYES CLOSED. PT AXO AND ABLE TO ANSWER ALL QUESTIONS UPON WAKING UP. SAT UP IN BED, STATED HE WAS NOT HUNGRY AND REFUSED BREAKFAST. I AM WALKING OUT OF ROOM, PT YELLS "NURSE" WHEN ASKED WHAT HE NEEDED HE ASKED ME WHERE HE WAS, REORIENTED. NO FURTHER NEEDS OR PAIN AT THIS TIME. CALL LIGHT WITHIN REACH. WILL CONTINUE TO MONITOR.
[2019-11-19 13:56] VITALS: BP 137/75
[2019-11-19 18:54] VITALS: BP 120/69
--- NOTE | 2019-11-19 19:11 | NUR ---
I have reviewed this patient and I concur with the Shift Assessment completed by the Licensed Practical Nurse today this shift.
--- NOTE | 2019-11-19 19:12 | NUR ---
SPOKE TO DAUGHTER ON PHONE AND SPENT OVER 30 MINUTES DISCUSSING PTS CARE AND GOING OVER EVERY MEDICATION. SHE STATED SHE WANTED HIM TAKEN OFF OF NEURONTIN WHICH WAS ON PTs MED REC. TRANSFERRED TO HEALTH SCREENER PER REQUEST. PT STATED HE HAD LOST HIS TOP PARTIAL TEETH, WAS NOT VISUALIZED THIS MORNING. HAD AIDE LOOK THROUGH BEDDING/TRASH/LINEN CART AND NONE FOUND AT THIS TIME. WILL PASS ALONG TO MEDICAL CLERICAL ASSISTANT RUBEN
--- NOTE | 2019-11-19 20:00 | NUR ---
PT IS RESTING IN BED WITH EYES OPEN. HE IS ALERT TO SELF, BUT CONFUSED TO TIME, PLACE AND SITUATION. ATTEMPTS TO REORIENT PT HAVE FAILED. HE IS FRIENDLY AND COOPERATIVE. HIS SPEECH IS GARBLED, BUT COMPREHENDABLE. PT INC. OF URINE AT THIS TIME. ZUHAIR CARE AND LINEN CHANGE DONE. RIGHT HAND SALINE LOCK NOTED. NO REDNESS OR EDEMA NOTED AT THE INSERTION SITE. SR'S ARE UP X 3 IN BED. CALL LIGHT AND BEDSIDE TABLE ARE WITHIN EASY REACH.
[2019-11-19 21:45] VITALS: BP 136/81
--- NOTE | 2019-11-19 22:23 | NUR ---
PT IS RESTING IN BED WITH EYES OPEN. ALERT TO SELF ONLY. PT IS INC. OF A LARGE AMOUNT OF URINE. ZUHAIR CARE AND PAD CHANGE DONE. PT STATED HE WAS HUNGRY AND WAS GIVEN A SANDWICH TRAY.
[2019-11-20 00:06] VITALS: BP 156/73
--- NOTE | 2019-11-20 01:00 | NUR ---
PT IS RESTING IN BED WITH EYES CLOSED. RESPS ARE EVEN AND UNLABORED. NO ACUTE DISTRESS NOTED.
[2019-11-20 04:11] VITALS: BP 149/69
--- NOTE | 2019-11-20 04:31 | NUR ---
PT IS RESTING IN BED, SLEEPING IN SHORT NAPS ONLY. HE AWAKENS FREQUENTLY AND PUSHES HIS CALL LIGHT, BUT MOST TIMES CANNOT REMEMBER WHAT HE WANTED. INC. CARE GIVEN AT THIS TIME.
[2019-11-20 06:34] LABS: BASOPHILS 0.1 % (0-2); HEMATOCRIT 40.6 % (42.0-54.0); HEMOGLOBIN 13.1 g/dL (13.5-17.5); IMMATURE GRANULOCYTES 0.4 % (0-5); MCH 30.5 pg (26.0-34.0); MCHC 32.3 g/dL (31.0-37.0); MCV 94.6 fL (80.0-100.0); MEAN PLATELET VOLUME 10.4 fL (7.4-10.4); MONOCYTES 10.8 % (2-11); NEUTROPHILS 71.7 % (40-80); PLATELET COUNT 432 10x3/uL (130-400); RBC 4.29 10x6/uL (4.20-6.10); RDW 14.2 % (11.5-14.5); WBC 16.2 10x3/uL (4.8-10.8)
[2019-11-20 06:48] LABS: ANION GAP 11.9 mmol/L (8-16); CALCIUM 9.4 mg/dL (8.5-10.1); CARBON DIOXIDE 24.5 mmol/L (21.0-32.0); CREATININE - SERUM 1.8 mg/dL (0.6-1.3); MAGNESIUM - SERUM 1.9 mg/dL (1.8-2.4); POTASSIUM - SERUM 3.4 mmol/L (3.5-5.1)
--- NOTE | 2019-11-20 07:35 | NUR ---
REPORT RECIEVED. PT SITTING SEMI FOWLERS IN BED. RR EVEN AND UNLABORED ON RA. PT HAS A R HAND PIV THAT IS SL. BED LOCKED AND IN LOWEST POSITION,CALL LIGHT WITHIN REACH. WILL CTM
[2019-11-20 08:00] VITALS: BP 136/71
--- NOTE | 2019-11-20 10:22 | MORECARE ---
CASE MANAGEMENT DISCHARGE SUMMARY PATIENT: MELISSA GORDILLO SR UNIT: [id number] ADM DATE: 11/16/19 AGE: 69 : 49 SEX: M ROOM/BED: D.2135 AUTHOR: JOAQUIN LIZARRAGA PHYSICIAN: REFERRING PHYSICIAN: THA LEIJA MD DATE OF SERVICE: 11/20/19 Discharge Plan Patient Name: MELISSA GORDILLO Facility: [facility]:[place] : 1950 Planned Disposition: Anticipated Discharge Date: Discharge Date: Expected LOS: Initial Reviewer: [email or web address] Initial Review Date: 11/16/2019 Generated: 11/20/19 11:21 am Patient Name: MELISSA GORDILLO Page [phone] at 1022 All edits/amendments must be made on the electronic document DICTATION DATE: 11/20/19 1021 RECLAMATION WORKER: CHASE 11/20/19 1021 RPT#: [id number] DC DATE: STATUS: ADM IN [facility] [address] [place] [address] END OF REPORT
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
[2019-11-20 12:00] VITALS: BP 135/75
--- NOTE | 2019-11-20 12:28 | MORECARE ---
CASE MANAGEMENT DISCHARGE SUMMARY PATIENT: MELISSA GORDILLO SR UNIT: [id number] ADM DATE: 11/16/19 AGE: 69 : 49 SEX: M ROOM/BED: D.2135 AUTHOR: JOAQUIN LIZARRAGA PHYSICIAN: REFERRING PHYSICIAN: THA LEIJA MD DATE OF SERVICE: 11/20/19 Discharge Plan Patient Name: MELISSA GORDILLO Facility: [facility]:[place] : 1950 Planned Disposition: Anticipated Discharge Date: Discharge Date: Expected LOS: Initial Reviewer: [email or web address] Initial Review Date: 11/16/2019 Generated: 11/20/19 1:27 pm External Providers External Provider: [facility] Next Contact Date: Service Request Date: Service Type: Resolution: Reviewer: Comments: Last DP export: 11/20/19 9:22 a Patient Name: MELISSA GORDILLO Page [phone] at 1228 All edits/amendments must be made on the electronic document DICTATION DATE: 11/20/19 1227 BUTT MAKER: CHASE 11/20/19 1227 RPT#: [id number] DC DATE: STATUS: ADM IN [facility] [address] [place] [address] END OF REPORT
--- NOTE | 2019-11-20 14:10 | NUR ---
Nutrition Follow-up: Pt unavailable on multiple attempts to visit. Chart reviewed. PO intake appears to fluctuate. Noted possible d/c tomorrow. Diet: Diabetic PO intake: 25-75% WT: 171.9# (11/19); 179# (11/15) Labs noted: K+ 3.4 Meds noted: Miralax, Protonix -Encourage PO intake and honor food preferences within diet restrictions. -Offer Glucerna with meals. -Monitor wt. -RD following.
[2019-11-20 16:00] VITALS: BP 138/74
--- NOTE | 2019-11-20 16:12 | NUR ---
I have reviewed this patient and I concur with the Shift Assessment completed by the Licensed Practical Nurse today this shift.
--- NOTE | 2019-11-20 20:03 | NUR ---
PT IS REFUSING ALL MEDICATIONS, PT STATES "IM NOT TAKING A DAMN THING, YOU CAN TAKE THAT SHIT AWAY, THE NELLI IS COMING AND YOU BETTER PUT ME ON THE FLOOR. TAKE THAT SHIT AWAY." THIS NURSE TRIED TO REORIENTATE PT. PT CONTINUES TO REFUSE MEDICATION. CL IN REACH, BED IN LOWEST POSITION.
[2019-11-20 20:43] VITALS: BP 140/80
--- NOTE | 2019-11-20 23:25 | NUR ---
SPOKE WITH DAVID HICKS APN DUE TO PT YELLING OUT AND SCREAMING "HELP, POLICE TAKE ME TO THE HOSPITAL, POLICE I DIDNT DO A DAMN THING WRONG. CALL MY SHE NEEDS TO KNOW WHERE I AM." THIS NURSE TRIED TO REORIENTATE PT WITH NO SUCCESS. PT IS VERBALLY DEMANDING AND ATTEMPTING TO CALL POLICE ON ROOM PHONE. DAVID HICKS APN ORDERED ONE TIME DOSE OF 0.5 MG HALDOL ONE TIME.
--- NOTE | 2019-11-20 23:45 | NUR ---
DURING ADMINISTATION OF HALDOL IM, PT STATED "CALL MY , THE POLICE ARE HERE, OPEN THE DOOR SO THEY CAN GET IN. MY PAIN IS TOO MUCH. THEY BETTER COME AND GET ME THE FUCK OUT OF HERE." THIS NURSE WAS UNABLE TO REORIENTATE PT.
[2019-11-21 00:14] VITALS: BP 101/60
[2019-11-21 05:35] VITALS: BP 146/80
--- NOTE | 2019-11-21 07:10 | NUR ---
REPORT RECEIVED FROM MEDICAL RECORDS SUPERVISOR AND PATIENT CARE ASSUMED. PATIENT LAYING IN BED ON BACK AWAKE, ALERT AND DISORIENTED X 3. PATIENT DENIES ANY NEEDS OR PAIN. WILL CONTINUE WITH PLAN OF CARE . SR UP X 2 BED IN LOW POSITION AND CALL LIGHT IN REACH.
--- NOTE | 2019-11-21 07:39 | MORECARE ---
CASE MANAGEMENT DISCHARGE SUMMARY PATIENT: MELISSA GORDILLO SR UNIT: [id number] ADM DATE: 11/16/19 AGE: 69 : 49 SEX: M ROOM/BED: D.2135 AUTHOR: JOAQUIN LIZARRAGA PHYSICIAN: REFERRING PHYSICIAN: THA LEIJA MD DATE OF SERVICE: 11/21/19 Discharge Plan Patient Name: MELISSA GORDILLO Facility: [facility]:[place] : 1950 Planned Disposition: Anticipated Discharge Date: Discharge Date: Expected LOS: Initial Reviewer: [email or web address] Initial Review Date: 11/16/2019 Generated: 11/21/19 8:38 am Coverage Notice Reviewer: [email or web address] Kristi Shah Notice Issued Date-Time: 11/20/2019 10:10 Notice Type: Patient Choice Letter Notice Delivered To: Patient Relationship to Patient: Custom Studio Coordinator Name: Delivery Method: HAND - Hand Delivered Bernadette Days: Prior Verbal Notification: Recipient Understood Notice: Yes Recipient Signature: Yes Med Rec Note Co-signed by Attending: Coverage Notice Comment: karime signed for [facility] Last DP export: 11/20/19 11:28 a Patient Name: MELISSA GORDILLO Page [phone] at 0739 All edits/amendments must be made on the electronic document DICTATION DATE: 11/21/19737 TIRE SERVICER: CHASE 11/21/19737 RPT#: [id number] DC DATE: STATUS: ADM IN [facility] [address] [place] [address] END OF REPORT
[2019-11-21 08:18] LABS: BASOPHILS 0.2 % (0-2); EOSINOPHILS 1.2 % (0-7); HEMATOCRIT 38.7 % (42.0-54.0); HEMOGLOBIN 12.5 g/dL (13.5-17.5); IMMATURE GRANULOCYTES 0.2 % (0-5); LYMPHOCYTES 11.1 % (15-50); MCH 30.9 pg (26.0-34.0); MCHC 32.3 g/dL (31.0-37.0); MCV 95.6 fL (80.0-100.0); MEAN PLATELET VOLUME 10.7 fL (7.4-10.4); MONOCYTES 11.9 % (2-11); NEUTROPHILS 75.4 % (40-80); PLATELET COUNT 409 10x3/uL (130-400); RBC 4.05 10x6/uL (4.20-6.10); RDW 14.1 % (11.5-14.5); WBC 16.3 10x3/uL (4.8-10.8)
[2019-11-21 08:39] LABS: ANION GAP 15.3 mmol/L (8-16); CALCIUM 9.5 mg/dL (8.5-10.1); CARBON DIOXIDE 21.9 mmol/L (21.0-32.0); CREATININE - SERUM 2.2 mg/dL (0.6-1.3); MAGNESIUM - SERUM 2.1 mg/dL (1.8-2.4)
[2019-11-21 08:40] LABS: POTASSIUM - SERUM 4.2 mmol/L (3.5-5.1)
--- NOTE | 2019-11-21 09:30 | NUR ---
PATIENT IS STABLE AND VSS. PATIENT DENIES ANY NEEDS OR PAIN. MEDS GIVEN AND ASSESSMENT COMPLETED. WILL CONTINUE TO MONITOR. SR UPX 2 BED IN LOW POSITION AND CALL LIGHT IN REACH.
[2019-11-21 09:40] VITALS: BP 137/74
--- NOTE | 2019-11-21 12:30 | NUR ---
PATEINT IS STABLE AND UNCHANGED. PATIENT DENIES ANY NEEDS OR PAIN. WILL CONTINUE WITH PLAN OF CARE. SR UP X 2 BED IN LOW POSITION AND CALL LIGHT IN REACH.
--- NOTE | 2019-11-21 13:14 | MORECARE ---
CASE MANAGEMENT DISCHARGE SUMMARY PATIENT: MELISSA GORDILLO SR UNIT: [id number] ADM DATE: 11/16/19 AGE: 69 : 49 SEX: M ROOM/BED: D.2135 AUTHOR: JOAQUIN LIZARRAGA PHYSICIAN: REFERRING PHYSICIAN: THA LEIJA MD DATE OF SERVICE: 11/21/19 Discharge Plan Patient Name: MELISSA GORDILLO Facility: [facility]:[place] : 1950 Planned Disposition: Anticipated Discharge Date: Discharge Date: Expected LOS: Initial Reviewer: [email or web address] Initial Review Date: 11/16/2019 Generated: 11/21/19 2:13 pm Comments DCP- Discharge Planning Updated by [email or web address]: Sylwia Shah on 11/21/19 12:[address] Patient Name: MELISSA GORDILLO Encounter No: [id number] : 1950 Primary Insurance: MEDICARE A & B Anticipated DC Date: Planned Disposition: External Planned Provider: : DCP note: CM met with patient to complete initial dc planning assessment. Patient pleasantly confused with daughter Anuja at bedside. CM educated patient on the CM role and verbal consent given to complete assessment. At discharge patient plans to go to a SNF at [facility]. Pt and his daughter want to go to this SN facility because the pt is there for penitentiary services. KARIME signed for [facility] CM will continue to follow and will assist as needed with dc plans/needs. = Sylwia Shah Coverage Notice Reviewer: [id number] - Sylwia Shah Notice Issued Date-Time: 11/20/2019 10:10 Notice Type: Patient Choice Letter Notice Delivered To: Patient Relationship to Patient: Helicopter Dispatcher Name: Delivery Method: HAND - Hand Delivered Bernadette Days: Prior Verbal Notification: Recipient Understood Notice: Yes Recipient Signature: Yes Med Rec Note Co-signed by Attending: Coverage Notice Comment: karime signed for [facility] Last DP export: 11/21/19 6:39 am Patient Name: MELISSA GORDILLO Page [phone] at 1314 All edits/amendments must be made on the electronic document DICTATION DATE: 11/21/191313 COURT WORKER: CHASE 11/21/191313 RPT#: [id number] DC DATE: STATUS: ADM IN [facility] [address] [facility] [place] [address] END OF REPORT
[2019-11-21 13:31] VITALS: BP 137/74
[2019-11-21 18:56] VITALS: BP 139/78
--- NOTE | 2019-11-21 19:08 | NUR ---
EVENING ROUNDS COMPLETE. PT LAYING IN BED. NO SIGNS OF DISTRESS. CL IN REACH, BED IN LOWEST POSITION.
[2019-11-21 20:00] VITALS: BP 155/87
--- NOTE | 2019-11-21 20:13 | NUR ---
PT TOOK ALL PO MEDICATION WITH PERSISTANT COACHING. PT STILL REFUSED FSBS CHECK. CL IN REACH, BED IN LOWEST POSITION.
[2019-11-22 04:00] VITALS: BP 173/96
[2019-11-22 06:21] LABS: BASOPHILS 0.1 % (0-2); EOSINOPHILS 0.1 % (0-7); HEMATOCRIT 39.4 % (42.0-54.0); HEMOGLOBIN 12.7 g/dL (13.5-17.5); IMMATURE GRANULOCYTES 0.3 % (0-5); LYMPHOCYTES 7.7 % (15-50); MCH 30.8 pg (26.0-34.0); MCHC 32.2 g/dL (31.0-37.0); MCV 95.6 fL (80.0-100.0); MEAN PLATELET VOLUME 10.7 fL (7.4-10.4); MONOCYTES 6.9 % (2-11); NEUTROPHILS 84.9 % (40-80); PLATELET COUNT 435 10x3/uL (130-400); RBC 4.12 10x6/uL (4.20-6.10); RDW 14.1 % (11.5-14.5); WBC 17.8 10x3/uL (4.8-10.8)
[2019-11-22 06:42] LABS: ANION GAP 17.8 mmol/L (8-16); CALCIUM 9.5 mg/dL (8.5-10.1); CARBON DIOXIDE 20.3 mmol/L (21.0-32.0); CREATININE - SERUM 2.5 mg/dL (0.6-1.3); MAGNESIUM - SERUM 2.2 mg/dL (1.8-2.4); POTASSIUM - SERUM 4.1 mmol/L (3.5-5.1)
--- NOTE | 2019-11-22 07:10 | NUR ---
REPORT RECEIVED FROM STAFFING ACCOUNT MANAGER AND PATIENT CARE ASSUMED. PATIENT LAYING IN BED ON BACK WITH EYES CLOSED AND BREATHING EVENLY. WILL CONTINUE TO [facility]. SR UP X 2 BED IN LOW POSITION AND CALL LIGHT IN REACH.
[2019-11-22 08:31] VITALS: BP 168/89
--- NOTE | 2019-11-22 09:19 | MORECARE ---
CASE MANAGEMENT DISCHARGE SUMMARY PATIENT: MELISSA GORDILLO SR UNIT: [id number] ADM DATE: 11/16/19 AGE: 69 : 49 SEX: M ROOM/BED: D.2135 AUTHOR: ZIADOC PHYSICIAN: REFERRING PHYSICIAN: THA LEIJA MD DATE OF SERVICE: 11/22/19 Discharge Plan Patient Name: MELISSA GORDILLO Facility: [facility]:[place] : 1950 Planned Disposition: Anticipated Discharge Date: Discharge Date: Expected LOS: Initial Reviewer: [email or web address] Initial Review Date: 11/16/2019 Generated: 11/22/19 10:19 am Comments DCP- Discharge Planning Updated by [email or web address]: Sylwia Shah on 11/21/19 12:[address] Patient Name: MELISSA GORDILLO Encounter No: [id number] : 1950 Primary Insurance: MEDICARE A & B Anticipated DC Date: Planned Disposition: External Planned Provider: : DCP note: CM met with patient to complete initial dc planning assessment. Patient pleasantly confused with daughter Anuja at bedside. CM educated patient on the CM role and verbal consent given to complete assessment. At discharge patient plans to go to a SNF at [facility]. Pt and his daughter want to go to this facility because the pt is there for snf services. KARIME signed for [facility] CM will continue to follow and will assist as needed with dc plans/needs. = Sylwia Shah External Providers External Provider: [facility] Next Contact Date: Service Request Date: Service Type: Resolution: Reviewer: Comments: Coverage Notice Reviewer: [id number] - Sylwia Shah Notice Issued Date-Time: 11/20/2019 10:10 Notice Type: Patient Choice Letter Notice Delivered To: Patient Relationship to Patient: Toy Assembler Name: Delivery Method: HAND - Hand Delivered Bernadette Days: Prior Verbal Notification: Recipient Understood Notice: Yes Recipient Signature: Yes Med Rec Note Co-signed by Attending: Coverage Notice Comment: karime signed for [facility] Last DP export: 11/21/19 12:14 pm Patient Name: MELISSA GORDILLO Page [phone] at 0919 All edits/amendments must be made on the electronic document DICTATION DATE: 11/22/19918 PASS WORKER: CHASE 11/22/19918 RPT#: [id number] DC DATE: STATUS: ADM IN [facility] [address] [place] [address] END OF REPORT
[2019-11-22 12:24] VITALS: BP 149/83
--- NOTE | 2019-11-22 12:46 | NUR ---
Nutrition Follow-up: Nursing reports pt not eating well and is having delayed swallowing; ST eval pending. Per family, pt with aversion to eating 2/2 frequent diarrhea, although pt currently receiving Miralax daily; last recorded BM 11/14. Diet: Diabetic PO intake: 25% x 3 meals yesterday Wt: 164# (11/21); 173# (11/20); 171.9# (11/19); 179# (11/15) Labs noted: Glu 145 Meds noted: Miralax, Protonix -Encourage PO intake and honor food preferences within diet restrictions; consistencies per ST. -Offer Glucerna with meals. -Noted wt change, although 9# difference between yesterday and today. Will monitor; noted daily wts ordered. -RD following.
--- NOTE | 2019-11-22 15:15 | NUR ---
PATIENT RESTING COMFORTABLY. VSS . WILL CONTINUE WITH PLAN OF CARE. SR UP X 2 BED IN LOW POSITION AND CALL LIGHT INR EACH.
--- NOTE | 2019-11-22 18:24 | MORECARE ---
CASE MANAGEMENT DISCHARGE SUMMARY PATIENT: MELISSA GORDILLO SR UNIT: [id number] ADM DATE: 11/16/19 AGE: 69 : 49 SEX: M ROOM/BED: D.2135 AUTHOR: ZIADOC PHYSICIAN: REFERRING PHYSICIAN: THA LEIJA MD DATE OF SERVICE: 11/22/19 Discharge Plan Patient Name: MELISSA GORDILLO Facility: [facility]:[place] : 1950 Planned Disposition: Anticipated Discharge Date: Discharge Date: Expected LOS: Initial Reviewer: [email or web address] Initial Review Date: 11/16/2019 Generated: 11/22/19 7:24 pm Comments DCP- Discharge Planning Updated by [email or web address]: Sylwia Shah on 11/21/19 12:[address] Patient Name: MELISSA GORDILLO Encounter No: [id number] : 1950 Primary Insurance: MEDICARE A & B Anticipated DC Date: Planned Disposition: External Planned Provider: : DCP note: CM met with patient to complete initial dc planning assessment. Patient pleasantly confused with daughter Anuja at bedside. CM educated patient on the CM role and verbal consent given to complete assessment. At discharge patient plans to go to a SNF at [facility]. Pt and his daughter want to go to this facility because the pt is there for retirement services. KARIME signed for [facility] CM will continue to follow and will assist as needed with dc plans/needs. = Sylwia Shah External Providers External Provider: [facility] and [facility] Next Contact Date: Service Request Date: Service Type: Resolution: Reviewer: Comments: Coverage Notice Reviewer: [id number] - Sylwia Shah Notice Issued Date-Time: 11/20/2019 10:10 Notice Type: Patient Choice Letter Notice Delivered To: Patient Relationship to Patient: Equipment Superintendent Name: Delivery Method: HAND - Hand Delivered Bernadette Days: Prior Verbal Notification: Recipient Understood Notice: Yes Recipient Signature: Yes Med Rec Note Co-signed by Attending: Coverage Notice Comment: karime signed for [facility] Last DP export: 11/22/19 8:19 am Patient Name: MELISSA GORDILLO Page [phone] at 1824 All edits/amendments must be made on the electronic document DICTATION DATE: 11/22/191823 ALTERNATIVE ENERGY TECHNICIAN: CHASE 11/22/191823 RPT#: [id number] DC DATE: STATUS: ADM IN [facility] [address] [place] [address] END OF REPORT
--- NOTE | 2019-11-22 18:32 | MORECARE ---
CASE MANAGEMENT DISCHARGE SUMMARY PATIENT: MELISSA GORDILLO SR UNIT: [id number] ADM DATE: 11/16/19 AGE: 69 : 49 SEX: M ROOM/BED: D.2135 AUTHOR: ZIA,DOC PHYSICIAN: REFERRING PHYSICIAN: THA LEIJA MD DATE OF SERVICE: 11/22/19 Discharge Plan Patient Name: MELISSA GORDILLO Facility: [facility]:[place] : 1950 Planned Disposition: Anticipated Discharge Date: Discharge Date: Expected LOS: Initial Reviewer: [id number] Initial Review Date: 11/16/2019 Generated: 11/22/19 7:31 pm DCP- Discharge Planning Updated by [email or web address]: Sylwia Shah on 11/22/19 5:[address] Patient Name: MELISSA GORDILLO Encounter No: [id number] : 1950 Primary Insurance: MEDICARE A & B Anticipated DC Date: Planned Disposition: External Planned Provider: : DCP note: CM met with patient to complete initial dc planning assessment. Patient pleasantly confused with daughter Anuja at bedside. CM educated patient on the CM role and verbal consent given to complete assessment. At discharge patient plans to go to a SNF at [facility]. Pt and his daughter want to go to this facility because the pt is there for senior care services. KARIME signed for [facility] CM will continue to follow and will assist as needed with dc plans/needs. 11/21/19 Spoke with Bernice at the [facility] [phone]. Bernice stated they were unable to accept patients for 28 days. Sent referral to [facility] in [place] her Daughter request. 11/22/19 Spoke with DORCAS at [facility] who stated they were unable to meet the needs of the patient. CM called [facility] admission coordinator and faxed referral. CM will continue to follow and assist with DC plans/needs. Sylwia Shah Coverage Notice Reviewer: [id number] - Sylwia Shah Notice Issued Date-Time: 11/20/2019 10:10 Notice Type: Patient Choice Letter Notice Delivered To: Patient Relationship to Patient: Endocrinology Physician Name: Delivery Method: HAND - Hand Delivered Bernadette Days: Prior Verbal Notification: Recipient Understood Notice: Yes Recipient Signature: Yes Med Rec Note Co-signed by Attending: Coverage Notice Comment: karime signed for [facility] Last DP export: 11/22/19 5:24 pm Patient Name: MELISSA GORDILLO Page [phone] at 1832 All edits/amendments must be made on the electronic document DICTATION DATE: 11/22/191830 HVAC SALES REPRESENTATIVE: CHASE 11/22/191830 RPT#: [id number] DC DATE: STATUS: ADM IN [facility] [address] [place] [address] END OF REPORT
--- NOTE | 2019-11-22 19:15 | NUR ---
RECIVED PT. LYING IN BED AWAKE AND ALERT. BED ALARM ED SPECIAL EDUCATION TEACHER LIGHT WITH IN REACH. WILLCONTINUE TO MONITOR
[2019-11-22 20:00] VITALS: BP 140/74
--- NOTE | 2019-11-22 23:42 | NUR ---
PT LYING IN BED RESTING COMFORTABLY WITH EYES CLOSED. EASILY AWAKEN WITH VOICE STIMULATION. NO SIGNS OR SYMPTOMS OF DISTRESS NOTED. PT COMPLAIN OF PAIN TO HIP. PRN MEDICATION ADMINISTERED WITH APPLE SAUCE. CALL LIGHT AND OTHER PERSONAL ITEMS WITH IN REACH. BED IS IN ITS LOWEST POSITION. SIDE RAILS x2. PT ENCOURAGED TO CALL FOR HELP WHEN NEEDED. WILL CONTINUE TOMONITOR
[2019-11-23] VITALS: BP 126/60
[2019-11-23 04:00] VITALS: BP 158/69
[2019-11-23 05:08] LABS: BASOPHILS 0.2 % (0-2); EOSINOPHILS 1.1 % (0-7); HEMATOCRIT 36.7 % (42.0-54.0); HEMOGLOBIN 11.7 g/dL (13.5-17.5); IMMATURE GRANULOCYTES 0.4 % (0-5); LYMPHOCYTES 19.1 % (15-50); MCH 30.3 pg (26.0-34.0); MCHC 31.9 g/dL (31.0-37.0); MCV 95.1 fL (80.0-100.0); MEAN PLATELET VOLUME 10.6 fL (7.4-10.4); MONOCYTES 10.9 % (2-11); NEUTROPHILS 68.3 % (40-80); PLATELET COUNT 414 10x3/uL (130-400); RBC 3.86 10x6/uL (4.20-6.10); RDW 14.1 % (11.5-14.5)
[2019-11-23 05:15] LABS: WBC 12.8 10x3/uL (4.8-10.8)
[2019-11-23 05:25] LABS: ANION GAP 11.1 mmol/L (8-16); CALCIUM 9.4 mg/dL (8.5-10.1); CARBON DIOXIDE 25.2 mmol/L (21.0-32.0); CREATININE - SERUM 2.5 mg/dL (0.6-1.3); MAGNESIUM - SERUM 2.1 mg/dL (1.8-2.4); URIC ACID 11.2 mg/dL (2.6-7.2)
[2019-11-23 05:26] LABS: POTASSIUM - SERUM 3.3 mmol/L (3.5-5.1)
--- NOTE | 2019-11-23 06:37 | NUR ---
PRN PAINMEDICATION ADMINISTERED. PT ISACC CAVAZOS NURSE GET MY SHOES. PT REMINDED THAT HE IS IN THE HOSPITAL. ORAL CARE AND NI CARE PROVIDED. CALL LIGHT AND OTHER PERSONAL ITEMS WITH IN REACH. PT REPOSITIONED FOR COMFORT THROUGH OUT THE NIGHT. WILL CONTIUE TO MONITOR
--- NOTE | 2019-11-23 08:00 | NUR ---
PT SITTING UP IN CHAIR. DAUGHTER AT BEDSIDE. REVIEWED POC WITH DAUGHTER AND SHE VERBALIZED UNDERSTANDING. WANTED A COPY OF RESULTS. REFERED TO MEDICAL RECORDS. PT DENIES FURTHER NEEDS OR PAIN AT THIS TIME. CALL LIGHT WITHIN REACH. WILL CONTINUE TO MONITOR.
[2019-11-23 09:26] VITALS: BP 181/90
[2019-11-23 14:09] VITALS: BP 104/58
[2019-11-23 17:50] VITALS: BP 147/74
--- NOTE | 2019-11-23 19:29 | NUR ---
RECEIVED UP IN BED WITH EYES OPEN AND TV ON. SPEECH SLURRED. ALERT AND ORIENTED TO PERSON ONLY.F/C INTACT WITH YELLOW COLOR URINE DRAINING TO BEDSIDE DRAINAGE SYSTEM. LT SIDE FLACCID D/T OLD CVA. BRUISES TO VALERIA ARMS. DENIES ANY NEEDS.
[2019-11-23 20:00] VITALS: BP 107/68
[2019-11-24 04:00] VITALS: BP 116/61
--- NOTE | 2019-11-24 07:20 | NUR ---
RESTING IN BED WITH EYES CLOSED. RESPIRATIONS EVEN AND UNLABORED. BEDFAST. NI CATHETER PRESENT. LEFT SIDE FLACCID. BUE BRUISING. BRACE TO LEFT LEG. MEDS WHOLE WITH APPLESAUCE. CALL LIGHT IN REACH. WILL CONTINUE TO MONITOR.
[2019-11-24 09:00] VITALS: BP 125/56
[2019-11-24 09:35] LABS: BASOPHILS 0.2 % (0-2); EOSINOPHILS 3.2 % (0-7); HEMATOCRIT 37.5 % (42.0-54.0); HEMOGLOBIN 12.2 g/dL (13.5-17.5); IMMATURE GRANULOCYTES 0.3 % (0-5); LYMPHOCYTES 20.8 % (15-50); MCH 31.2 pg (26.0-34.0); MCHC 32.5 g/dL (31.0-37.0); MCV 95.9 fL (80.0-100.0); MEAN PLATELET VOLUME 10.5 fL (7.4-10.4); MONOCYTES 12.3 % (2-11); NEUTROPHILS 63.2 % (40-80); PLATELET COUNT 370 10x3/uL (130-400); RBC 3.91 10x6/uL (4.20-6.10); RDW 14.4 % (11.5-14.5); WBC 11.4 10x3/uL (4.8-10.8)
[2019-11-24 09:47] LABS: ANION GAP 10.1 mmol/L (8-16); CALCIUM 9.1 mg/dL (8.5-10.1); CREATININE - SERUM 2.3 mg/dL (0.6-1.3); POTASSIUM - SERUM 4.1 mmol/L (3.5-5.1)
[2019-11-24 10:21] LABS: SPECIFIC GRAVITY 1.015 (1.005-1.020)
[2019-11-24 10:22] LABS: BILIRUBIN NEGATIVE (NEGATIVE); GLUCOSE NEGATIVE (NEGATIVE); KETONE NEGATIVE (NEGATIVE); NITRITE NEGATIVE (NEGATIVE); UROBILINOGEN NORMAL (NORMAL)
[2019-11-24 10:24] LABS: EPITHELIAL CELLS 0-5 /hpf (0-5)
[2019-11-24 10:25] LABS: BACTERIA FEW /hpf (NEGATIVE); YEAST >1+ WITH HYPHAE /hpf (NONE SEEN)
[2019-11-24 11:00] VITALS: BP 112/70
[2019-11-24 15:00] VITALS: BP 129/71
--- NOTE | 2019-11-24 17:46 | NUR ---
I have reviewed this patient and I concur with the Shift Assessment completed by the Licensed Practical Nurse today this shift.
--- NOTE | 2019-11-24 18:17 | NUR ---
ALERT, RESTING IN BED WATCHING TV. NO C/O PAIN. NO S/S OF ACUTE DISTRESS NOTED. DENIES ANY NEEDS AT THIS TIME. CALL LIGHT IN REACH. BED ALARM ON. WILL CONTINUE TO MONITOR.
--- NOTE | 2019-11-24 19:30 | NUR ---
PT IN BED, AAO X 1, RESP EVEN AND UNLABORED. NO DISTRESS NOTED, CL IN REACH, SR UP X 2.
[2019-11-24 20:00] VITALS: BP 113/71
[2019-11-25] VITALS: BP 119/74
[2019-11-25 04:00] VITALS: BP 136/72
[2019-11-25 05:18] LABS: BASOPHILS 0.2 % (0-2); EOSINOPHILS 3.2 % (0-7); HEMATOCRIT 37.7 % (42.0-54.0); HEMOGLOBIN 11.7 g/dL (13.5-17.5); IMMATURE GRANULOCYTES 0.4 % (0-5); MCH 29.9 pg (26.0-34.0); MCV 96.4 fL (80.0-100.0); MEAN PLATELET VOLUME 11.5 fL (7.4-10.4); MONOCYTES 12.4 % (2-11); NEUTROPHILS 57.8 % (40-80); PLATELET COUNT 379 10x3/uL (130-400); RBC 3.91 10x6/uL (4.20-6.10); RDW 14.7 % (11.5-14.5); WBC 11.8 10x3/uL (4.8-10.8)
[2019-11-25 06:05] LABS: CALCIUM 9.1 mg/dL (8.5-10.1); CARBON DIOXIDE 23.8 mmol/L (21.0-32.0); CREATININE - SERUM 2.1 mg/dL (0.6-1.3); PHOSPHOROUS 2.3 mg/dL (2.5-4.9); POTASSIUM - SERUM 3.8 mmol/L (3.5-5.1)
--- NOTE | 2019-11-25 06:12 | NUR ---
I have reviewed this patient and I concur with the Shift Assessment completed by the Licensed Practical Nurse today this shift.
[2019-11-25 08:31] VITALS: BP 126/72
[2019-11-25 13:20] VITALS: BP 130/69
[2019-11-25 18:29] VITALS: BP 119/73
--- NOTE | 2019-11-25 19:36 | NUR ---
RECIEVED UP IN BED YELLING OUT THE DOOR TO ANYONE PASSING BY. ALERT AND ORIENTED X2. BEDFAST AT THIS TIME. ASKING THIS NURSE TO CALL FIRE DEPT TO GET HIM DOWN . BECAUSE HE IS AFRAID OF HEIGHTS. ATTEMPTED TO REORIENT. UNSUCESSFUL AT THIS TIME. ALSO ASKED FOR A SEMI TO HELP HIM GET DOWN. NO IV AT THIS TIME. BED ALARM IN PLACE AND YELLOW GOWN ON. CONT TO REFUSES HAVING HIS SHOES OFF. NO S/S OF DISTRESS OBSERVED.
--- NOTE | 2019-11-26 00:18 | NUR ---
YELLING OUT ALL SHIFT. WENT INTO ROOM AND ASKED IF HE WAS HURTING AND HE STATED "YES". GAVE HIM NORCO ORDERED. HE IS NOW CALM AND AWAKE AND NOT YELLING OUT.
[2019-11-26 00:30] VITALS: BP 140/75
[2019-11-26 05:00] VITALS: BP 161/77
[2019-11-26 05:21] LABS: BASOPHILS 0.2 % (0-2); EOSINOPHILS 3.1 % (0-7); HEMATOCRIT 38.6 % (42.0-54.0); HEMOGLOBIN 12.2 g/dL (13.5-17.5); IMMATURE GRANULOCYTES 0.6 % (0-5); LYMPHOCYTES 25.7 % (15-50); MCH 30.3 pg (26.0-34.0); MCHC 31.6 g/dL (31.0-37.0); MCV 95.8 fL (80.0-100.0); MEAN PLATELET VOLUME 10.9 fL (7.4-10.4); MONOCYTES 13.3 % (2-11); NEUTROPHILS 57.1 % (40-80); PLATELET COUNT 392 10x3/uL (130-400); RBC 4.03 10x6/uL (4.20-6.10); RDW 14.2 % (11.5-14.5); WBC 11.7 10x3/uL (4.8-10.8)
[2019-11-26 05:47] LABS: ANION GAP 8.7 mmol/L (8-16); CARBON DIOXIDE 26.9 mmol/L (21.0-32.0); CREATININE - SERUM 2.1 mg/dL (0.6-1.3); PHOSPHOROUS 2.3 mg/dL (2.5-4.9); POTASSIUM - SERUM 3.6 mmol/L (3.5-5.1)
--- NOTE | 2019-11-26 07:30 | NUR ---
REPORT RECIEVED. PT SITTING SEMI FOWLERS IN BED. RR EVEN AND UNLABORED ON RA. HE HAS A NI DRAINING URINE. HE IS HOLLORING OUT FOR HIS AND STATES HE DOES NOT WANT THEM TO BUILD A RAILROAD IN HIS ROOM. ORIENTED TO SELF ONLY. BED ALARM ON AND WORKING. WILL CTM
[2019-11-26 08:30] VITALS: BP 138/73
--- NOTE | 2019-11-26 11:38 | MORECARE ---
CASE MANAGEMENT DISCHARGE SUMMARY PATIENT: MELISSA GORDILLO SR UNIT: [id number] ADM DATE: 11/16/19 AGE: 69 : 49 SEX: M ROOM/BED: D.2104 AUTHOR: ZIA,DOC PHYSICIAN: REFERRING PHYSICIAN: THA LEIJA MD DATE OF SERVICE: 11/26/19 Discharge Plan Patient Name: MELISSA GORDILLO Facility: [facility]:[place] : 1950 Planned Disposition: Anticipated Discharge Date: Discharge Date: Expected LOS: Initial Reviewer: [email or web address] Initial Review Date: 11/16/2019 Generated: 11/26/19 12:37 pm Comments DCP- Discharge Planning Updated by [email or web address]: Mariah Kevin on 11/26/19 10:[address] CM has contacted Jimmy Ruelas APRN for a DC order. Per Dr. Martins patient can DC from his standpoint. DCP- Discharge Planning Updated by [id number]: Sylwia Shah on 11/22/19 5:[address] Patient Name: MELISSA GORDILLO Encounter No: [id number] : 1950 Primary Insurance: MEDICARE A & B Anticipated DC Date: Planned Disposition: External Planned Provider: : DCP note: CM met with patient to complete initial dc planning assessment. Patient pleasantly confused with daughter Anuja at bedside. CM educated patient on the CM role and verbal consent given to complete assessment. At discharge patient plans to go to a SNF at [facility]. Pt and his daughter want to go to this SN facility because the pt is there for penitentiary services. KARIME signed for [facility] CM will continue to follow and will assist as needed with dc plans/needs. 11/21/19 Spoke with Bernice at the [facility] [phone]. Bernice stated they were unable to accept patients for 28 days. Sent referral to [facility] in [place] her Daughter request. 11/22/19 Spoke with DORCAS at [facility] who stated they were unable to meet the needs of the patient. CM called [facility] admission coordinator and faxed referral. CM will continue to follow and assist with DC plans/needs. Sylwia Shah Coverage Notice Reviewer: [id number] - Sylwia Shah Notice Issued Date-Time: 11/20/2019 10:10 Notice Type: Patient Choice Letter Notice Delivered To: Patient Relationship to Patient: Continuous Miner Operator Name: Delivery Method: HAND - Hand Delivered Bernadette Days: Prior Verbal Notification: Recipient Understood Notice: Yes Recipient Signature: Yes Med Rec Note Co-signed by Attending: Coverage Notice Comment: karime signed for [facility] Last DP export: 11/22/19 5:32 pm Patient Name: MELISSA GORDILLO Page [id number] at 1138 All edits/amendments must be made on the electronic document DICTATION DATE: 11/26/19 113 JOINT SEALER: CHASE 11/26/19 1137 RPT#: [id number] DC DATE: STATUS: ADM IN [facility] [address] [place] [address] END OF REPORT
--- NOTE | 2019-11-26 11:53 | MORECARE ---
CASE MANAGEMENT DISCHARGE SUMMARY PATIENT: VAN AMADOR UNIT: [id number] ADM DATE: 11/16/19 AGE: 69 : 49 SEX: M ROOM/BED: D.2108 AUTHOR: ZIA,DOC PHYSICIAN: REFERRING PHYSICIAN: THA LEIJA MD DATE OF SERVICE: 11/26/19 Discharge Plan Patient Name: VAN AMADOR Facility: [facility]:[place] : 1950 Planned Disposition: Anticipated Discharge Date: Discharge Date: Expected LOS: Initial Reviewer: [email or web address] Initial Review Date: 11/16/2019 Generated: 11/26/19 12:52 pm Comments DCP- Discharge Planning Updated by [id number]: Mariah Kevin on 11/26/19 10:[address] DC plans: The [facility] to a Medicare skilled bed. The [facility] will transport via their van. CM has contacted Jimmy Ruelas APRN for a DC order. Per Dr. Martins patient can DC from his standpoint. Patient signed DC IMM and KARIME for the [facility]. DCP- Discharge Planning Updated by [id number]: Sylwia Shah on 11/22/19 5:[address] Patient Name: VAN AMADOR Encounter No: [id number] : 1950 Primary Insurance: MEDICARE A & B Anticipated DC Date: Planned Disposition: External Planned Provider: : DCP note: CM met with patient to complete initial dc planning assessment. Patient pleasantly confused with daughter Anuja at bedside. CM educated patient on the CM role and verbal consent given to complete assessment. At discharge patient plans to go to a SNF at [facility]. Pt and his daughter want to go to this SN facility because the pt is there for halfway services. KARIME signed for [facility] CM will continue to follow and will assist as needed with dc plans/needs. 11/21/19 Spoke with Bernice at the [facility] [phone]. Bernice stated they were unable to accept patients for 28 days. Sent referral to [facility] in [place] her Daughter request. 11/22/19 Spoke with DORCAS at [facility] who stated they were unable to meet the needs of the patient. CM called [facility] admission coordinator and faxed referral. CM will continue to follow and assist with DC plans/needs. Sylwia Shah Coverage Notice Reviewer: [id number] - Sylwia Shah Notice Issued Date-Time: 11/20/2019 10:10 Notice Type: Patient Choice Letter Notice Delivered To: Patient Relationship to Patient: Laundry Marker Supervisor Name: Delivery Method: HAND - Hand Delivered Bernadette Days: Prior Verbal Notification: Recipient Understood Notice: Yes Recipient Signature: Yes Med Rec Note Co-signed by Attending: Coverage Notice Comment: karime signed for [facility] Reviewer: [id number] Kristi Kevin Notice Issued Date-Time: 11/26/2019 11:49 Notice Type: IM Discharge Notice Notice Delivered To: Patient Relationship to Patient: Self Laundry Marker Supervisor Name: Van amador Delivery Method: HAND - Hand Delivered Bernadette Days: Prior Verbal Notification: Recipient Understood Notice: Yes Recipient Signature: Yes Med Rec Note Co-signed by Attending: Coverage Notice Comment: DC IMM signed Last DP export: 11/26/19 10:38 am Patient Name: VAN AMADOR Page [phone] at 1153 All edits/amendments must be made on the electronic document DICTATION DATE: 11/26/19 115 TUBING MILL OPERATOR: CHASE 11/26/19 1152 RPT#: [id number] DC DATE: STATUS: ADM IN [facility] [address] [place] [address] END OF REPORT
[2019-11-26] MEDS ORDERED: OXYBUTYNIN CHLOR5 MG PO (11:55)
[2019-11-26] MEDS ORDERED: HYDRALAZINE HCL25 MG PO (11:55)
[2019-11-26] MEDS ORDERED: ULORIC40 MG PO (11:55)
[2019-11-26] MEDS ORDERED: LISINOPRIL2.5 MG PO (11:55)
[2019-11-26] MEDS ORDERED: NYSTATIN100000 UN4 PO (11:55)
--- NOTE | 2019-11-26 12:33 | NUR ---
REHAB PRESCREENING Rehab referral received and chart reviewed. Mr. East is too low level to participate in the required 3 hours of therapy. He does not meet admission criteria. Spoke with case management, he has been accepted at a SNF and will be transferring today. Thank you for this referral! Ivy Momin, CONSTRUCTION ECONOMIST Rehab PD
--- NOTE | 2019-11-26 13:46 | MORECARE ---
CASE MANAGEMENT DISCHARGE SUMMARY PATIENT: VAN AMADOR UNIT: [id number] ADM DATE: 11/16/19 AGE: 69 : 49 SEX: M ROOM/BED: D.210 AUTHOR: ZIA,DOC PHYSICIAN: REFERRING PHYSICIAN: THA LEIJA MD DATE OF SERVICE: 11/26/19 Discharge Plan Patient Name: VAN AMADOR Facility: [facility]:[place] : 1950 Planned Disposition: Anticipated Discharge Date: Discharge Date: Expected LOS: Initial Reviewer: [email or web address] Initial Review Date: 11/16/2019 Generated: 11/26/19 2:46 pm Comments DCP- Discharge Planning Updated by [email or web address]: Mariah Kevin on 11/26/19 12:[address] DC plans: [facility] ([phone]) to a Medicare skilled bed. [facility] will transport via their van. [facility] contacted the patient's daughter, Jenna Duron (POA) @[phone], to make her aware where the patient will be discharging to. Attempted to contact Rochelle Nunez (dtr) @[phone] and was unable to leave a , due to the mail-box not being set up. CM contacted Maribel, with [facility], in order to arrange transportation to the facility. Maribel will call back with the time. CM has contacted Jimmy Ruelas APRN for a DC order. Per Dr. Martins patient can DC from his standpoint. Patient signed DC IMM and KARIME for the [facility]. DCP- Discharge Planning Updated by [email or web address]: Sylwia Shah on 11/22/19 5:[address] Patient Name: VAN AMADOR Encounter No: [id number] : 1950 Primary Insurance: MEDICARE A & B Anticipated DC Date: Planned Disposition: External Planned Provider: : DCP note: CM met with patient to complete initial dc planning assessment. Patient pleasantly confused with daughter Anuja at bedside. CM educated patient on the CM role and verbal consent given to complete assessment. At discharge patient plans to go to a SNF [facility]. Pt and his daughter want to go to this facility because the pt is there for custodial services. KARIME signed for [facility] CM will continue to follow and will assist as needed with dc plans/needs. 11/21/19 Spoke with Bernice at the [facility] [phone]. Bernice stated they were unable to accept patients for 28 days. Sent referral to [facility] in [place] her Daughter request. 11/22/19 Spoke with DON at [facility] who stated they were unable to meet the needs of the patient. CM called [facility] admission coordinator and faxed referral. CM will continue to follow and assist with DC plans/needs. Sylwia Shah Coverage Notice Reviewer: [id number] - Sylwia Shah Notice Issued Date-Time: 11/20/2019 10:10 Notice Type: Patient Choice Letter Notice Delivered To: Patient Relationship to Patient: Wood Calker Name: Delivery Method: HAND - Hand Delivered Bernadette Days: Prior Verbal Notification: Recipient Understood Notice: Yes Recipient Signature: Yes Med Rec Note Co-signed by Attending: Coverage Notice Comment: karime signed for [facility] Reviewer: [id number] Kristi Kevin Notice Issued Date-Time: 11/26/2019 11:49 Notice Type: IM Discharge Notice Notice Delivered To: Patient Relationship to Patient: Self Wood Calker Name: Van amador Delivery Method: HAND - Hand Delivered Bernadette Days: Prior Verbal Notification: Recipient Understood Notice: Yes Recipient Signature: Yes Med Rec Note Co-signed by Attending: Coverage Notice Comment: DC IMM signed Last DP export: 11/26/19 10:53 am Patient Name: VAN AMADOR Page [phone] at 1346 All edits/amendments must be made on the electronic document DICTATION DATE: 11/26/19 1346 WOOL FLEECE GRADER: CHASE 11/26/19 1346 RPT#: [id number] DC DATE: STATUS: ADM IN [place] [address] [place] [address] END OF REPORT
--- NOTE | 2019-11-26 14:10 | MORECARE ---
CASE MANAGEMENT DISCHARGE SUMMARY PATIENT: VAN AMADOR UNIT: [id number] ADM DATE: 11/16/19 AGE: 69 : 49 SEX: M ROOM/BED: D.2109 AUTHOR: ZIA,DOC PHYSICIAN: REFERRING PHYSICIAN: THA LEIJA MD DATE OF SERVICE: 11/26/19 Discharge Plan Patient Name: VAN AMADOR Facility: [facility]:[place] : 1950 Planned Disposition: Anticipated Discharge Date: Discharge Date: Expected LOS: Initial Reviewer: [id number] Initial Review Date: 11/16/2019 Generated: 11/26/19 3:09 pm Comments DCP- Discharge Planning Updated by [email or web address]: Mariah Kevin on 11/26/19 12:[address] DC plans: [facility] ([phone]) to a Medicare skilled bed. [facility] will transport via their van. [facility] contacted the patient's daughter, Jenna Duron (POA) @[phone], to make her aware where the patient will be discharging to. Attempted to contact Rochelle Nunez (dtr) @[phone] and was unable to leave a , due to the mail-box not being set up. CM contacted Maribel, with [facility], in order to arrange transportation to the facility. Maribel will call back with the time. CM has contacted Jimmy Ruelas APRN for a DC order. Per Dr. Martins patient can DC from his standpoint. Patient signed DC IMM and KARIME for the [facility]. DCP- Discharge Planning Updated by [email or web address]: Sylwia Shah on 11/22/19 5:[address] Patient Name: VAN AMADOR Encounter No: [id number] : 1950 Primary Insurance: MEDICARE A & B Anticipated DC Date: Planned Disposition: External Planned Provider: : DCP note: CM met with patient to complete initial dc planning assessment. Patient pleasantly confused with daughter Anuja at bedside. CM educated patient on the CM role and verbal consent given to complete assessment. At discharge patient plans to go to a SNF at [facility]. Pt and his daughter want to go to this facility because the pt is there for correction services. KARIME signed for [facility] CM will continue to follow and will assist as needed with dc plans/needs. 11/21/19 Spoke with Bernice at the [facility] [phone]. Bernice stated they were unable to accept patients for 28 days. Sent referral to [facility] in [place] her Daughter request. 11/22/19 Spoke with DON at [facility] who stated they were unable to meet the needs of the patient. CM called [facility] admission coordinator and faxed referral. CM will continue to follow and assist with DC plans/needs. Sylwia Shah Coverage Notice Reviewer: [id number] - Sylwia Shah Notice Issued Date-Time: 11/20/2019 10:10 Notice Type: Patient Choice Letter Notice Delivered To: Patient Relationship to Patient: Home Mission Worker Name: Delivery Method: HAND - Hand Delivered Bernadette Days: Prior Verbal Notification: Recipient Understood Notice: Yes Recipient Signature: Yes Med Rec Note Co-signed by Attending: Coverage Notice Comment: karime signed for [facility] Reviewer: [id number] Kristi Kevin Notice Issued Date-Time: 11/26/2019 11:49 Notice Type: IM Discharge Notice Notice Delivered To: Patient Relationship to Patient: Self Home Mission Worker Name: Van amador Delivery Method: HAND - Hand Delivered Bernadette Days: Prior Verbal Notification: Recipient Understood Notice: Yes Recipient Signature: Yes Med Rec Note Co-signed by Attending: Coverage Notice Comment: DC IMM signed Last DP export: 11/26/19 12:46 pm Patient Name: VAN AMADOR Page [phone] at 1410 All edits/amendments must be made on the electronic document DICTATION DATE: 11/26/19 1409 LOAN REVIEW OFFICER: CHASE 11/26/19 1409 RPT#: [id number] DC DATE: STATUS: ADM IN [place] [address] [place] [address] END OF REPORT
--- NOTE | 2019-11-26 14:44 | NUR ---
REPORT CALLED TO THE [facility]. DC PAPERWORK GONE OVER AND SIGNED BY PTS DAUGHTER. PT TO GO TO THE [facility] WITH A NI AND FOLLOW UP WITH UROLOGY. [facility] HERE TO TAKE PT TO FACILITY. ALL JACYBLES HILARY WITH PT.
--- NOTE | 2019-11-27 17:23 | MORECARE ---
CASE MANAGEMENT DISCHARGE SUMMARY PATIENT: VAN AMADOR UNIT: [id number] ADM DATE: 11/16/19 AGE: 69 : 49 SEX: M ROOM/BED: D.2100 AUTHOR: ZIA,DOC PHYSICIAN: REFERRING PHYSICIAN: THA LEIJA MD DATE OF SERVICE: 11/27/19 Discharge Plan Patient Name: VAN AMADOR Facility: [facility]:[place] : 1950 Planned Disposition: Halfway Facility Anticipated Discharge Date: 11/26/19 Discharge Date: 11/26/2019 Expected LOS: 10 Initial Reviewer: [email or web address] Initial Review Date: 11/16/2019 Generated: 11/27/19 6:23 pm Comments DCP- Discharge Planning Updated by [id number]: Mariah Kevin on 11/26/19 12:[address] DC plans: [facility] ([phone]) to a Medicare skilled bed. [facility] will transport via their van. [facility] contacted the patient's daughter, Jenna Duron (POA) @[phone], to make her aware where the patient will be discharging to. Attempted to contact Rochelle Nunez (dtr) @[phone] and was unable to leave a VM, due to the mail-box not being set up. CM contacted Maribel, with [facility], in order to arrange transportation to the facility. Maribel will call back with the time. CM has contacted Jimmy Ruelas APRN for a DC order. Per Dr. Martins patient can DC from his standpoint. Patient signed DC IMM and KARIME for the [facility]. DCP- Discharge Planning Updated by [email or web address]: Sylwia Shah on 11/22/19 5:[address] Patient Name: VAN AMADOR Encounter No: [id number] : 1950 Primary Insurance: MEDICARE A & B Anticipated DC Date: Planned Disposition: External Planned Provider: : DCP note: CM met with patient to complete initial dc planning assessment. Patient pleasantly confused with daughter Anuja at bedside. CM educated patient on the CM role and verbal consent given to complete assessment. At discharge patient plans to go to a SNF at [facility]. Pt and his daughter want to go to this SN facility because the pt is there for retirement services. KARIME signed for [facility] CM will continue to follow and will assist as needed with dc plans/needs. 11/21/19 [facility] with [facility] at [facility] [phone]. Bernice stated they were unable to accept patients for 28 days. Sent referral to [facility] in [place] her Daughter request. 11/22/19 Spoke with DON at [facility] who stated they were unable to meet the needs of the patient. CM called [place] admission coordinator and faxed referral. CM will continue to follow and assist with DC plans/needs. Sylwia Shah Coverage Notice Reviewer: [id number] - Sylwia Shah Notice Issued Date-Time: 11/20/2019 10:10 Notice Type: Patient Choice Letter Notice Delivered To: Patient Relationship to Patient: Cctv Technician Name: Delivery Method: HAND - Hand Delivered Bernadette Days: Prior Verbal Notification: Recipient Understood Notice: Yes Recipient Signature: Yes Med Rec Note Co-signed by Attending: Coverage Notice Comment: karime signed for [facility] Reviewer: [id number] Kristi Kevin Notice Issued Date-Time: 11/26/2019 11:49 Notice Type: IM Discharge Notice Notice Delivered To: Patient Relationship to Patient: Self Cctv Technician Name: Van amador Delivery Method: HAND - Hand Delivered Bernadette Days: Prior Verbal Notification: Recipient Understood Notice: Yes Recipient Signature: Yes Med Rec Note Co-signed by Attending: Coverage Notice Comment: DC IMM signed Last DP export: 11/26/19 1:10 pm Patient Name: VAN AMADOR Page [phone] at 1723 All edits/amendments must be made on the electronic document DICTATION DATE: 11/27/19 172 BOILER HOUSE INSPECTOR: CHASE 11/27/19 172 RPT#: [id number] DC DATE:11/26/19 STATUS: DIS IN [facility] [address] [place] [address] END OF REPORT
== END 2019-11-26 14:55 | DRG 304 ==
LOC: D.ER 11:22 → D.M2 12:51
PROVIDERS: Family Medicine; Internal Medicine Nephrology; ADMIT Family Medicine; ATTEND Family Medicine
DX: I16.0 Hypertensive urgency (principal); R53.2 Functional quadriplegia; N17.9 Acute kidney failure, unspecified; I48.20 Chronic atrial fibrillation, unspecified; I69.354 Hemiplegia and hemiparesis following cerebral infarction affecting left non-dominant side; N39.0 Urinary tract infection, site not specified; B37.0 Candidal stomatitis; I12.9 Hypertensive chronic kidney disease with stage 1 through stage 4 chronic kidney disease, or unspecified chronic kidney disease; N18.3 Chronic kidney disease, stage 3 (moderate); D63.1 Anemia in chronic kidney disease; E11.22 Type 2 diabetes mellitus with diabetic chronic kidney disease; E78.5 Hyperlipidemia, unspecified; G89.29 Other chronic pain; M54.9 Dorsalgia, unspecified; B96.5 Pseudomonas (aeruginosa) (mallei) (pseudomallei) as the cause of diseases classified elsewhere